=== PATIENT | male | born 1950 | race Caucasian/White ===

== ENCOUNTER → 2016-12-07 15:02 | Outpatient (CLI) | payer MEDICARE ==
[2014-02-07 16:19] VITALS: BMI 22.9
[~2016-12-07 15:02] MED LIST: ATIVAN1 MG PO; HYDROCODONE-APA1 TAB PO; MULTI-DAY VITAM1 TAB PO; NAPROSYN250 MG PO; RESTORIL15 MG PO; SONATA10 MG PO; VITAMIN B-1100 M1 PO
[2016-12-07 15:59] LABS: BASOPHILS 0.8 % (0-2); EOSINOPHILS 9.5 % (0-7); IMMATURE GRANULOCYTES 0.2 % (0-5); LYMPHOCYTES 32.4 % (15-50); MCH 33.7 pg (26.0-34.0); MCHC 34.1 g/dL (31.0-37.0); MCV 98.6 fL (80.0-100.0); MEAN PLATELET VOLUME 9.7 fL (7.4-10.4); MONOCYTES 12.1 % (2-11); RBC 4.16 10x6/uL (4.20-6.10); WBC 6.5 10x3/uL (4.8-10.8)
[2016-12-07 16:08] LABS: PLATELET COUNT 285 10x3/uL (130-400)
[2016-12-07 16:23] LABS: ALBUMIN 3.7 g/dL (3.4-5.0); ALKALINE PHOSPHATASE 89 U/L (46-116); ALT (SGPT) 18 U/L (10-68); AMYLASE - SERUM 25 U/L (25-115); BILIRUBIN - TOTAL 0.33 mg/dL (0.2-1.3); CALC OSMOLALITY 275 mosm/kg (275-300); CALCIUM 8.8 mg/dL (8.5-10.1); CARBON DIOXIDE 27.2 mmol/L (21.0-32.0); CHLORIDE - SERUM 102 mmol/L (98-107); GAMMA GT 57 U/L (5-85); GLUCOSE 85 mg/dL (74-106); LIPASE 112 U/L (73-393); POTASSIUM - SERUM 4.6 mmol/L (3.5-5.1); PROTEIN - SERUM 7.2 g/dL (6.4-8.2); SODIUM 139 mmol/L (136-145); UREA NITROGEN 10 mg/dL (7-18); eGFR NON AFRICAN AMERICAN 79 mL/min (90-120)
[2016-12-09 11:19] LABS: HEPATITIS C ANTIBODY <0.1 (0.0-0.9)
== END | disposition home or self-care (01) ==
LOC: D.RAD 15:02
PROVIDERS: Internal Medicine Gastroenterology
DX: R10.31 Right lower quadrant pain (principal); R11.2 Nausea with vomiting, unspecified; K62.5 Hemorrhage of anus and rectum; K21.9 Gastro-esophageal reflux disease without esophagitis; R13.10 Dysphagia, unspecified; K76.0 Fatty (change of) liver, not elsewhere classified

== ENCOUNTER → 2016-12-14 11:00 | Outpatient (CLI) | payer MEDICARE ==
[2014-02-07 16:19] VITALS: BMI 22.9
== END | disposition home or self-care (01) ==
LOC: D.RAD 11:00
DX: R10.9 Unspecified abdominal pain (principal)

== ENCOUNTER 2017-01-20 10:55 | Outpatient (CLI) | payer MEDICARE ==
[~2017-01-20] VITALS: Ht 175.3 cm; Wt 72.7 kg
--- NOTE | ~2017-01-20 | HEMODYNAMI ---
PATIENT:LAYO MENEZES MEDICAL RECORD: [id number] : 46 LOCATION:[facility] ADMISSION DATE: 01/20/17 Generatedon:01/20/201713:26 Patient name: LAYO MENEZES Patient #: [id number] SSN: : 1950 Date of study: 01/20/2017 Page: Of Hemodynamic Procedure Report Patient Data Patient Demographics Procedure consent was obtained First Name: LAYO Gender: Male Last Name: CLIF : 1950 [facility] Initial: MARY ELLEN Age: 66 year(s) Patient #: [id number] Race: Unknown Additional ID: [id number] Contact details [address]: [address] [place] [address] State: [place] City: [facility] Zip code: [address] Past Medical History Allergies Allergen Reaction Date Comments Reported Codeine 01/20/2017 Penicillins 01/20/2017 Admission Admission Data Admission Date: 01/20/2017 Admission Time: 10:55 Height (in.): 5.9 BSA: 0.32 (m2) Height (cm.): 14.99 BMI: 3393.15 (kg/m2) Weight (lbs.): 168 Weight (kg.): 76.2 Procedure Procedure Types Cath Procedure Diagnostic Procedure LHC LH w/Coronaries Miscellaneous Procedures Moderate Sedation up to 15 minutes Procedure Description Procedure Date Procedure Date: 01/20/2017 Procedure Start Time: 13:15 Procedure End Time: 13:26 Procedure Staff Name Function Larry Rios MD Performing Physician Christina Smith RT Monitor Alecia Gray RT Scrub Tod Garcia RN Nurse Procedure Data Cath Procedure Fluoroscopy Diagnostic fluoroscopy Total fluoroscopy Time: 2.2 time: 2.2 min min Diagnostic fluoroscopy Total fluoroscopy dose: 411 dose: 411 mGy mGy Contrast Material Contrast Material Type Amount (ml) Isovue 300 53 Entry Location Entry Primary Successful Side Size Upsize Upsize Entry Closure Bryant ccessful Closure Location (Fr) 1 (Fr) 2 (Fr) Remarks Device Remarks Radial Right 6 Fr Mechanical artery Short Compression Estimated blood loss: 5 ml Diagnostic catheters Device Type Used For End Catheter Placement DIAGNOSTIC [place] 110cm 5 Right Coronary Fr catheter ([id number]) Angiography DIAGNOSTIC [place] 110cm 5 Left Coronary Fr catheter ([id number]) Angiography Procedure Complications No complications Procedure Medications Medication Administration Route Dosage 0.9% NaCl I.V. 100 ml/hr Oxygen NC 2 l/min Heparin Flush Bag added to field 2 bags (1000units/500ml NS) Lidocaine 2% added to field 20 Radial Cocktail added to field 1 syringe (Verapomil 2mg/Nitro 400mcg/Heparin 1500units) Versed I.V. 2 mg Fentanyl I.V. 100 mcg Radial Cocktail I.A. 1 syringe (Verapomil 2mg/Nitro 400mcg/Heparin 1500units) Hemodynamics Rest BSA: 0.32 (m2) O2 Consumption: Estimated: 37.55 (ml/min) O2 Consumption indexed: Estimated:117.34 (ml/min/m) Heart Rate: 73 (bpm) Pressure Samples Time Site Value (mmHg) Purpose Heart Use Rate(bpm) 13:21 LV 98/4,6 EDP 92 13:21 AO 105/76(90) Pullback 89 13:21 LV 106/10,12 Pullback 89 Gradients Valve Time Site 1 Site 2 Mean SEP/DFP Peak To Heart Use (mmHg) (sec/min) Peak Rate (mmHg) (bpm) Aortic 13:21 LV AO 8 17 1 89 106/10,12 105/76(90) Calculations Valve P-P Mean Valve Index Valve Source Name Gradient Area Flow (cm2) Aortic 1 8 1 8 Snapshots Pre Cath Intra NCS Post Cath Vital Signs Time Heart Resp SPO2 etCO2 NIBP (mmHg) Rhythm Pain Sedation Rate (ipm) (%) (mmHg) Status Level (bpm) 12:58:08 78 19 97 38.5 148/91(119) NSR 0 (11) 10(A) , No pain 13:02:46 74 18 99 40.8 131/92(119) NSR 0 (11) 10(A) , No pain 13:07:25 79 18 100 31 131/86(99) NSR 0 (11) 10(A) , No pain 13:12:05 77 16 99 27.9 126/86(104) NSR 0 (11) 10(A) , No pain 13:16:44 77 14 99 43.1 118/87(102) NSR 0 (11) 10(A) , No pain 13:21:21 91 16 96 14.3 109/76(100) NSR 0 (11) 10(A) , No pain 13:25:55 82 13 32.5 111/79(96) NSR 0 (11) 10(A) , No pain Medications Time Medication Route Dose Verified Delivered Reason Notes Effectiveness by by 12:57:33 0.9% NaCl I.V. 100 Tod Tod Per ml/hr Radha Garcia physician RN RN 12:57:45 Oxygen NC 2 l/min Tod Tod Per Radha Garcia physician RN RN 12:57:58 Heparin Flush added 2 bags Tod Tod used for Bag to Radha Garcia procedure (1000units/500ml field RICH VILLANUEVA NS) 12:58:13 Lidocaine 2% added 20ml Tod Tod for local to vial Radha Garcia anesthetic field VILLANUEVA RN 13:03:31 Radial Cocktail added 1 Tod Tod for (Verapomil to syringe Arelyigan Arelyigan vasodilation 2mg/Nitro field VILLANUEVA RN 400mcg/Heparin 1500units) 13:13:00 Versed I.V. 2 mg Tod Tod for sedation Radha Garcia RN RN 13:13:13 Fentanyl I.V. 100 mcg Tod Tod for sedation Radha Garcia RN RN 13:16:44 Radial Cocktail I.A. 1 Tod Larry for (Verapomil syringe Radha [place] vasodilation 2mg/Nitro RICH ABDI 400mcg/Heparin 1500units) Procedure Log Time Note 12:42:36 Patient Height : 5.9 inches 12:42:40 Patient Weight : 168 lbs 12:43:07 Diagnostic Cath status Elective 12:43:09 Time tracking: Regular hours 12:43:12 Christina Counts RT(R) sent for patient. Start room use. 12:43:21 Plan of Care:Hemodynamics will remain stable., Cardiac rhythm will remain stable., Comfort level will be maintained., Respiratory function will remain adequate., Patient/ family verbilizes understanding of procedure., Procedure tolerated without complication., Recovers from procedure without complications.. 12:43:44 H&P Date Dictated: 12/31/2016 Within 30 days and on chart., H&P Addendum completed by physician on day of procedure. (MUST COMPLETE FOR ALL OUTPATIENTS). 12:49:31 Patient received from Pre/Post Procedure Room to CCL 1 Alert and oriented. Tansferred to table in Supine position. 12:49:32 Warm blankets applied, and darshan hugger turned on for patient comfort. 12:49:33 Correct patient and procedure confirmed by team. 12:49:35 Signed procedure consent form obtained from patient. 12:49:36 ECG and BP/O2 sat monitors applied to patient. 12:57:16 Vital chart was started 12:57:33 0.9% NaCl 100 ml/hr I.V. was administered by Tod Garcia RN; Per physician; 12:57:45 Oxygen 2 l/min NC was administered by Tod Garcia RN; Per physician; 12:57:58 Heparin Flush Bag (1000units/500ml NS) 2 bags added to field was administered by Tod Garcia RN; used for procedure; 12:58:13 Lidocaine 2% 20ml vial added to field was administered by Tod Garcia RN; for local anesthetic; 13:01:16 Baseline sample Acquired. 13:01:20 Rhythm: unchanged. 13:01:21 Full Disclosure recording started 13:01:22 Pre-procedure instructions explained to patient. 13:01:23 Pre-op teaching completed and patient verbalized understanding. 13:01:25 Family unavailable. 13:01:32 Patient NPO since Midnight. 13:01:40 Patient allergic to Codeine 13:01:46 Patient allergic to Penicillins 13:01:48 Is the patient allergic to Iodine/contrast media? No. 13:01:50 Is patient on blood thinner?No 13:01:52 Patient diabetic? No. 13:01:56 Previous problem with sedation/anesthesia? No ? 13:01:57 Snore? No 13:01:58 Sleep apnea? No 13:01:59 Deviated septum? No 13:02:00 Opens mouth fully? Yes 13:02:01 Sticks out tongue? Yes 13:02:03 Airway obstruction? No ? 13:02:05 Dentures? Yes IN 13:02:08 Pre procedure: right dorsailis pedis pulse 2+ Normal; easily identifiable; not easily obliterated 13:02:11 Modified Darrell's test Ulnar < 7 seconds 13:02:12 Patient pain scale 0/10 ?. 13:02:17 IV patent on arrival in left hand with 0.9% NaCl at O. 13:02:20 Lab results completed and on chart. 13:02:23 Right Radial & Right Groin area was prepped with chlora-prep and draped in sterile fashion 13:02:24 Alarms reviewed by R. N. 13:02:24 Sharps counted by scrub and verified by R.N. 13:02:27 Use device set Radial Dx 13:02:28 ACIST Syringe (31827) opened to sterile field. 13:02:28 Medline Cath Pack ([id number]) opened to sterile field. 13:02:29 Bag Decanter (2002S) opened to sterile field. 13:02:29 SHEATH 6FR Slender ([id number]) opened to sterile field. 13:02:30 DIAGNOSTIC WIRE .035 260cm J wire (850524) opened to sterile field. 13:02:31 ACIST Hand Control (04955) opened to sterile field. 13:02:31 ACIST Manifold (96222) opened to sterile field. 13:02:32 Tegaderm 4 x 4 (1626W) opened to sterile field. 13:02:33 MBrace Wrist Support ([id number]) opened to sterile field. 13:03:31 Radial Cocktail (Verapomil 2mg/Nitro 400mcg/Heparin 1500units) 1 syringe added to field was administered by Tod Garcia RN; for vasodilation; 13:04:06 Physician paged 13:05:53 Zero performed for pressure channel P1 13:11:05 Final Timeout: patient, procedure, and site verified with staff and physician. All members of the team are in agreement. 13:11:07 Right Radial site verified by team. 13:11:17 Physical assessment completed. ASA score P 2 - A patient with mild systemic disease as per Larry Rios MD. 13:11:24 Sedation plan: IV Moderate Sedation Medication:Versed, Fentanyl 13:13:00 Versed 2 mg I.V. was administered by Tod Garcia RN; for sedation; 13:13:13 Fentanyl 100 mcg I.V. was administered by Tod Garcia RN; for sedation; 13:15:02 Procedure started. 13:15:09 Local anesthetic to right radial artery with Lidocaine 2% by Larry Rios MD.INITIAL ACCESS ONLY 13:15:43 A 6 Fr Short sheath was inserted into the Right Radial artery 13:16:44 Radial Cocktail (Verapomil 2mg/Nitro 400mcg/Heparin 1500units) 1 syringe I.A. was administered by Larry Rios MD; for vasodilation; 13:17:15 A DIAGNOSTIC [place] 110cm 5 Fr catheter (385075) was advanced over the wire and used for Right Coronary Angiography. 13:19:39 A DIAGNOSTIC [place] 110cm 5 Fr catheter (793079) was advanced over the wire and used for Left Coronary Angiography. 13:21:34 LV gram done using DUARTE 13::44 Injector settings: Ml/sec: 5, Volume: 15, 13:21:47 Catheter removed. 13:22:05 Sheath removed intact; hemostasis achieved with Mechanical Compression to the Right Radial artery. 13:22:08 Procedure ended.(Physican Out) 13:22:24 Fluoroscopy time 02.20 minutes. 13:22:27 Fluoroscopy dose: 411 mGy 13:22:27 Flurop Dose total: 411 13:22:32 Contrast amount:Isovue 300 53ml. 13:22:34 Sharps counted by scrub and verified by R.N. 13:22:36 Insertion/operative site no bleeding no hematoma. 13:22:53 TR band inflated with 12cc of air. 13:22:56 TR BAND Standard ([id number]) opened to sterile field. 13:23:01 Post Procedure Pulses reassessed and unchanged 13:23:03 Post-procedure physical assessment completed. ASA score P 2 - A patient with mild systemic disease as per Larry Rios MD. 13:23:05 Post procedure rhythm: unchanged. 13:23:08 Estimated blood loss: 5 ml 13:23:10 Post procedure instruction explained to patient.Patient verbalizes understanding. 13:23:10 Patient needs reinforcement of post procedure teaching. 13:25:04 See physician's report for complete and final results. 13:25:23 Procedure and supply charges have been captured, reviewed, submitted and are correct. 13:25:28 Procedure Complication : No complications 13:25:56 Vital chart was stopped 13:26:00 Report given to Pre/Post Procedure Room. 13:26:04 Patient transfered to Pre/Post Procedure Room with Stretcher. 13:26:12 Procedure ended. 13:26:12 Full Disclosure recording stopped 13:26:16 End room use (Document Last) Device Usage Item Name Manufacture Quantity Catalog Hospital Part Current Minima l Lot# / Number Charge Number Stock Stock Serial# Code ACIST Acist 1 [id number] [id number] 477634 496298 20 Syringe Medical (15085) Systems Inc Medline Cath Cardinal 1 [id number] 837081 58746 225574 5 Pack Health ([id number]) Bag Decanter Microtek 1 2001S 353921 67495 527350 5 (2001S) Medical Inc. SHEATH 6FR Terumo 1 [id number] 896974 231481 372864 40 Slender ([id number]) DIAGNOSTIC [facility] Elias 1 125761 413843 140375 672459 30 WIRE .035 260cm J wire (021571) ACIST Hand Acist 1 48516 667854 161635 997915 5 Control Medical (44751) Systems Inc ACIST Acist 1 79147 399498 798326 521795 5 Manifold Medical (09662) Systems Inc Tegaderm 4 x 3M 1 1626W 086281 496653 381399 5 4 (1626W) MBrace Wrist Advanced 1 140-0250-00 654558 37622 953649 5 Support Vascular ([id number]) Dynamics DIAGNOSTIC Terumo 1 40-5013 791133 586406 315040 5 [place] 110cm 5 Fr catheter (375577) TR BAND Terumo 1 [id number] 805701 549159 349644 40 Standard (JHI53LAY) Signature Audit [place] Stage Time Signature Unsigned Intra-Procedure 01/20/2017 Christina 1:26:33 PM Counts RT(R) Signatures Monitor : Christina Signature : Counts RT Date : Time : [place] [id number]
[~2017-01-20 10:55] MED LIST changes: -SONATA10 MG PO
[2017-01-20] MEDS ORDERED: HYDROCODONE-APA1 TAB PO (11:12)
[2017-01-20] MEDS ORDERED: SONATA10 MG PO (11:14)
[2017-01-20 11:22] VITALS: BP 139/100; Ht 175.3 cm; Wt 72.7 kg
[2017-01-20 11:36] LABS: BASOPHILS 0.4 % (0-2); EOSINOPHILS 5.9 % (0-7); HEMATOCRIT 45.5 % (42.0-54.0); HEMOGLOBIN 15.5 g/dL (13.5-17.5); IMMATURE GRANULOCYTES 0.5 % (0-5); LYMPHOCYTES 31.5 % (15-50); MCH 33.5 pg (26.0-34.0); MCHC 34.1 g/dL (31.0-37.0); MCV 98.3 fL (80.0-100.0); MEAN PLATELET VOLUME 9.9 fL (7.4-10.4); MONOCYTES 8.7 % (2-11); PLATELET COUNT 329 10x3/uL (130-400); RBC 4.63 10x6/uL (4.20-6.10); RDW 12.6 % (11.5-14.5); WBC 9.9 10x3/uL (4.8-10.8)
[2017-01-20 11:40] LABS: CALC OSMOLALITY 274 mosm/kg (275-300); CALCIUM 9.2 mg/dL (8.5-10.1); CARBON DIOXIDE 27.5 mmol/L (21.0-32.0); CHLORIDE - SERUM 99 mmol/L (98-107); CREATININE - SERUM 0.9 mg/dL (0.6-1.3); GLUCOSE 113 mg/dL (74-106); POTASSIUM - SERUM 4.1 mmol/L (3.5-5.1); SODIUM 138 mmol/L (136-145); UREA NITROGEN 8 mg/dL (7-18); eGFR NON AFRICAN AMERICAN 89 mL/min (90-120)
--- NOTE | 2017-01-20 13:50 | NUR ---
2L NC, NO RESP DISTRESS. RIGHT WRIST TR BAND CDI, NO BLEEDING OR HEMATOMA NOTED. NO C/O PAIN OR NAUSEA. VSS. FAMILY AT BEDSIDE, CALL LIGHT WITHIN REACH.
--- NOTE | 2017-01-20 14:20 | NUR ---
RIGHT WRIST TR BAND CDI, NO BLEEDING OR HEMATOMA NOTED. 2L NC, NO RESP DISTRESS. DRINK AND SANDWICH TRAY GIVEN, NO C/O NAUSEA. VSS. WILL CONTINUE TO MONITOR.
--- NOTE | 2017-01-20 14:40 | NUR ---
4CC OF AIR REMOVED FROM TR BAND, NO BLEEDING NOTED.
--- NOTE | 2017-01-20 14:55 | NUR ---
4CC OF AIR REMOVED FROM TR BAND, NO BLEEDING NOTED.
--- NOTE | 2017-01-20 15:20 | NUR ---
LEFT WRIST PIV D/C'D WITH CATHETER INTACT, BAND AID TO SITE. UP TO BEDSIDE TO GET DRESSED.
--- NOTE | 2017-01-20 15:25 | NUR ---
REMAINING AIR REMOVED FROM TR BAND AND DRESSING PLACED TO SITE. DISCHARGE INSTRUCTIONS GIVEN, VERBALIZED UNDERSTANDING.
--- NOTE | 2017-01-20 15:35 | NUR ---
TAKEN OUT VIA WHEELCHAIR BY CATH COMMUNICATIONS TOWER TECHNICIAN. LEFT FACILITY WITH FAMILY AND ALL PERSONAL BELONGINGS.
--- NOTE | 2017-01-24 08:17 | OP ---
PATIENT NAME: LAYO MENEZES MEDICAL RECORD: [id number] :46 LOCATION:D[facility] ADMISSION DATE: SURGEON: CARMELITA DURAND MD DATE OF OPERATION: 01/20/2017 PROCEDURE: Left heart cath, selective coronary angiography, right radial approach. CATHETERS: A 5-Latvian radial catheter, Monroe catheter. The procedure was tolerated. The patient returned to griffith. Sheath was removed. TR band was placed. FINDINGS: Left ventriculography 30-degree DUARTE view: Normal wall motion, normal systolic function. CORONARY ANATOMY. LEFT MAIN: Left main is free of disease. LAD: Free of disease in the diagonal system. CIRCUMFLEX: Free of disease in the marginal system. RIGHT CORONARY ARTERY: Free of disease. IMPRESSION: Normal coronary anatomy. Normal left ventricular function. TRANSINT:[id number] Voice Confirmation ID: [id number] DOCUMENT ID: [id number] CARMELITA DURAND MD at 0817 CC: [id number] DICTATION DATE: 01/20/17 1417 BAKERY WORKER: 01/20/17 1501 DEP CLI 01/20/17 [place] [address] [place] [address]
== END 2017-01-20 15:35 | disposition home or self-care (01) ==
LOC: D.CATH 10:55
PROVIDERS: Internal Medicine Interventional Cardiology
DX: I20.9 Angina pectoris, unspecified (principal); I49.9 Cardiac arrhythmia, unspecified; I67.9 Cerebrovascular disease, unspecified; R07.9 Chest pain, unspecified; F17.200 Nicotine dependence, unspecified, uncomplicated; R94.30 Abnormal result of cardiovascular function study, unspecified; Z01.812 Encounter for preprocedural laboratory examination

== ENCOUNTER → 2018-06-09 09:58 | Outpatient (CLI) | payer MEDICARE ==
[~2018-06-09 09:58] MED LIST changes: +CARAFATE1 G PO; +CHRONULAC30 ML PO; +CYCLOBENZAPRINE10 MG PO; +LYRICA100 MG PO; +MACROBID100 MG PO; +SONATA10 MG PO
== END | disposition home or self-care (01) ==
LOC: D.LAB 09:58
DX: R06.09 Other forms of dyspnea (principal)

== ENCOUNTER → 2018-08-09 06:45 | Outpatient (CLI) | payer MEDICARE ==
--- NOTE | 2018-08-14 09:50 | ST ---
PATIENT:LAYO MENEZES MEDICAL RECORD: [id number] SEX: M LOCATION:[facility] ORDER #: ADMISSION DATE: 08/09/18 AGE OF PATIENT: 67 REFERRING PHYSICIAN: INTERPRETING PHYSICIAN: RODOLFO DICKERSON MD DATE OF SERVICE: 08/09/2018 PROCEDURE: Nuclear stress test. INDICATION: Angina, abnormal ECG, dysrhythmia -- PVCs. He was exercised on standard Lexiscan protocol with 33 mCi of sestamibi injected at peak stress, 11 mCi was used previously for rest images. FINDINGS: Gated SPECT reveals a preserved ejection fraction of 50% with decreased thickening and brightening throughout the inferior segments. SPECT imaging Cardiolite was used as a myocardial perfusion agent. There is a fixed perfusion defect inferiorly and septally. This includes basal, mid, apical, inferior segments, the apex itself as well as basal septal, mid septal and apical septal. There is no evidence of reversibility in the remaining segments with homogeneous uptake at rest and stress. OVERALL IMPRESSION: This is an abnormal nuclear stress test showing previous inferoseptal myocardial infarction, no ongoing ischemic burden, ejection fraction preserved at 50%. Continue medical management of the coronary artery disease and cardiac risk factors. TRANSINT:[id number] Voice Confirmation ID: [id number] DOCUMENT ID: [id number] RODOLFO DICKERSON MD at 0950 CC: ARACELY ARELLANO DO [id number] DICTATION DATE: 08/09/18 1635 MEMS DEVICE SCIENTIST: 08/10/18 0847 [facility] CLI 08/09/[address] [address]
== END | disposition home or self-care (01) ==
LOC: D.HCCARDIO 06:45
PROVIDERS: ATTEND Internal Medicine Interventional Cardiology
DX: I20.9 Angina pectoris, unspecified (principal)

== ENCOUNTER 2019-10-03 11:18 | Emergency (ER) | payer MEDICARE ==
[~2019-10-03] VITALS: Ht 175.3 cm; Wt 86.8 kg
[2019-10-03 11:26] VITALS: Ht 175.3 cm; Wt 86.8 kg
[2019-10-03 12:00] LABS: BASOPHILS 0.6 % (0-2); EOSINOPHILS 4.6 % (0-7); HEMATOCRIT 44.7 % (42.0-54.0); HEMOGLOBIN 14.5 g/dL (13.5-17.5); IMMATURE GRANULOCYTES 0.2 % (0-5); LYMPHOCYTES 37.9 % (15-50); MCH 33.3 pg (26.0-34.0); MCHC 32.4 g/dL (31.0-37.0); MCV 102.5 fL (80.0-100.0); MEAN PLATELET VOLUME 9.9 fL (7.4-10.4); MONOCYTES 11.4 % (2-11); NEUTROPHILS 45.3 % (40-80); PLATELET COUNT 246 10x3/uL (130-400); RBC 4.36 10x6/uL (4.20-6.10); RDW 12.5 % (11.5-14.5); WBC 6.3 10x3/uL (4.8-10.8)
[2019-10-03 12:08] LABS: CALC OSMOLALITY 278 mosm/kg (275-300); CALCIUM 8.8 mg/dL (8.5-10.1); CARBON DIOXIDE 30.8 mmol/L (21.0-32.0); CHLORIDE - SERUM 104 mmol/L (98-107); CREATININE - SERUM 1.1 mg/dL (0.6-1.3); GLUCOSE 93 mg/dL (74-106); POTASSIUM - SERUM 4.3 mmol/L (3.5-5.1); SODIUM 139 mmol/L (136-145); UREA NITROGEN 14 mg/dL (7-18); eGFR NON AFRICAN AMERICAN 70 mL/min (90-120)
[2019-10-03 12:16] LABS: ALBUMIN 3.5 g/dL (3.4-5.0); ALKALINE PHOSPHATASE 71 U/L (30-120); ALT (SGPT) 25 U/L (10-68); AMYLASE - SERUM 22 U/L (25-115); BILIRUBIN - TOTAL 0.62 mg/dL (0.2-1.3); LIPASE 71 U/L (73-393); PROTEIN - SERUM 6.5 g/dL (6.4-8.2); TROPONIN-I < 0.017 ng/mL (0.000-0.060)
[2019-10-03 12:31] LABS: BILIRUBIN NEGATIVE (NEGATIVE); GLUCOSE NEGATIVE (NEGATIVE); KETONE NEGATIVE (NEGATIVE); NITRITE NEGATIVE (NEGATIVE)
[2019-10-03] MEDS ORDERED: LEVSIN/ANASP0.125 MG PO (13:49)
[2019-10-03 13:59] VITALS: BP 109/71
== END 2019-10-03 14:00 | disposition home or self-care (01) ==
LOC: D.ER 11:18
PROVIDERS: Family Medicine
DX: R14.0 Abdominal distension (gaseous) (principal); R10.9 Unspecified abdominal pain; I25.2 Old myocardial infarction

== ENCOUNTER 2020-06-18 14:39 | Emergency (ER) | payer MEDICARE ==
[~2020-06-18] VITALS: Ht 175.3 cm; Wt 81.8 kg
[~2020-06-18 14:39] MED LIST changes: +LEVSIN/ANASP0.125 MG PO
[2020-06-18 14:48] VITALS: Ht 175.3 cm; Wt 81.8 kg
[2020-06-18 15:16] LABS: BASOPHILS 0.6 % (0-2); EOSINOPHILS 2.9 % (0-7); HEMATOCRIT 47.6 % (42.0-54.0); HEMOGLOBIN 16.1 g/dL (13.5-17.5); IMMATURE GRANULOCYTES 0.3 % (0-5); LYMPHOCYTE ABS# 2.48 10x3/uL (1.32-3.57); LYMPHOCYTES 28.7 % (15-50); MCHC 33.8 g/dL (31.0-37.0); MCV 100.4 fL (80.0-100.0); MEAN PLATELET VOLUME 10.4 fL (7.4-10.4); MONOCYTES 8.4 % (2-11); NEUTROPHILS 59.1 % (40-80); PLATELET COUNT 269 10x3/uL (130-400); RBC 4.74 10x6/uL (4.20-6.10); RDW 12.4 % (11.5-14.5); WBC 8.6 10x3/uL (4.8-10.8)
[2020-06-18 15:28] LABS: APTT 30.2 SECONDS (22.8-39.4); INR 1.04 (0.85-1.17); PROTIME 12.6 SECONDS (11.6-15.0)
[2020-06-18 15:36] LABS: CALC OSMOLALITY 275 mosm/kg (275-300); CALCIUM 8.6 mg/dL (8.5-10.1); CARBON DIOXIDE 26.7 mmol/L (21.0-32.0); CHLORIDE - SERUM 102 mmol/L (98-107); GLUCOSE 115 mg/dL (74-106); POTASSIUM - SERUM 4.1 mmol/L (3.5-5.1); SODIUM 137 mmol/L (136-145); UREA NITROGEN 14 mg/dL (7-18); eGFR NON AFRICAN AMERICAN 78 mL/min (90-120)
[2020-06-18 15:39] LABS: ALBUMIN 3.5 g/dL (3.4-5.0); ALKALINE PHOSPHATASE 104 U/L (30-120); ALT (SGPT) 20 U/L (10-68); BILIRUBIN - TOTAL 0.51 mg/dL (0.2-1.3); PROTEIN - SERUM 6.8 g/dL (6.4-8.2)
[2020-06-18 17:06] VITALS: BP 125/96
== END 2020-06-18 17:17 | disposition home or self-care (01) ==
LOC: D.ER 14:39
PROVIDERS: Emergency Medicine
DX: S16.1XXA Strain of muscle, fascia and tendon at neck level, initial encounter (principal); S09.90XA Unspecified injury of head, initial encounter; S70.11XA Contusion of right thigh, initial encounter; S20.219A Contusion of unspecified front wall of thorax, initial encounter; V09.09XA Pedestrian injured in nontraffic accident involving other motor vehicles, initial encounter; Y93.9 Activity, unspecified; Y92.9 Unspecified place or not applicable

== ENCOUNTER → 2020-07-02 15:03 | Outpatient (CLI) | payer MEDICARE ==
[2020-06-18 14:48] VITALS: BMI 26.6
[~2020-07-02 15:03] MED LIST changes: +ALBUTEROL SULF8.5 GM; +BETAMET; +CLOTRIMAZOLE; +DEXILANT60 MG PO; +DONEPEZIL HCL5 MG PO; +FLOMAX0.4 MG PO; +MELATONIN 3 MG1 TAB PO; +MUPIROCIN22 GM TOPICAL; +PEPCID40 MG PO; +ROPINIROLE HCL0.5 MG PO; +VALIUM 2 MG TAB2 MG PO; +ZOLOFT50 MG PO
[2020-07-03 11:18] LABS: SARS-CoV-2 ANTIGEN NEGATIVE- SARS-COV-2 (NEGATIVE)
== END | disposition home or self-care (01) ==
LOC: D.LAB 15:03
PROVIDERS: ATTEND Nurse Practitioner Family
DX: Z11.52 Encounter for screening for COVID-19 (principal)

== ENCOUNTER → 2020-07-03 09:15 | Outpatient (CLI) | payer MEDICARE ==
[2020-06-18 14:48] VITALS: BMI 26.6
== END | disposition home or self-care (01) ==
LOC: D.RT 09:15
PROVIDERS: ATTEND Nurse Practitioner Family
DX: J44.9 Chronic obstructive pulmonary disease, unspecified (principal); Z11.52 Encounter for screening for COVID-19

== ENCOUNTER 2020-07-04 13:25 | Inpatient (IN) | payer MEDICARE ==
[~2020-07-04] VITALS: Ht 175.3 cm; Wt 88.0 kg
[~2020-07-04 13:25] MED LIST changes: -ALBUTEROL SULF8.5 GM; -BETAMET; -CLOTRIMAZOLE; -DEXILANT60 MG PO; -DONEPEZIL HCL5 MG PO; -FLOMAX0.4 MG PO; -MELATONIN 3 MG1 TAB PO; -MUPIROCIN22 GM TOPICAL; -PEPCID40 MG PO; -ROPINIROLE HCL0.5 MG PO; -VALIUM 2 MG TAB2 MG PO; -ZOLOFT50 MG PO
[2020-07-04 18:14] LABS: BASOPHILS 0.7 % (0-2); EOSINOPHILS 2.6 % (0-7); HEMATOCRIT 44.5 % (42.0-54.0); HEMOGLOBIN 14.9 g/dL (13.5-17.5); LYMPHOCYTES 21.2 % (15-50); MCH 33.5 pg (26.0-34.0); MCHC 33.5 g/dL (31.0-37.0); MCV 100.1 fL (80.0-100.0); MEAN PLATELET VOLUME 8.3 fL (7.4-10.4); MONOCYTES 9.4 % (2-11); NEUTROPHILS 66.1 % (40-80); PLATELET COUNT 244 10x3/uL (130-400); RBC 4.45 10x6/uL (4.20-6.10); RDW 12.8 % (11.5-14.5); WBC 10.7 10x3/uL (4.8-10.8)
[2020-07-04 18:31] VITALS: BP 125/80
--- NOTE | 2020-07-04 18:34 | NUR ---
PT TO ROOM FROM ER VIA WHEELCHAIR. CHANGED TO GOWN. PULSE OX 95% ON ROOM AIR. POA WAS WITH HIM IN ER BUT WENT HOME NOW. WILL GET ADMITTED.
[2020-07-04 18:37] LABS: ALBUMIN 3.3 g/dL (3.4-5.0); ALKALINE PHOSPHATASE 80 U/L (30-120); ALT (SGPT) 17 U/L (10-68); BILIRUBIN - TOTAL 0.31 mg/dL (0.2-1.3); CALC OSMOLALITY 279 mosm/kg (275-300); CALCIUM 8.3 mg/dL (8.5-10.1); CARBON DIOXIDE 31.7 mmol/L (21.0-32.0); CHLORIDE - SERUM 104 mmol/L (98-107); CKMB 0.3 U/L (0.0-3.6); CREATINE KINASE 34 UL (21-232); CREATININE - SERUM 0.9 mg/dL (0.6-1.3); GLUCOSE 91 mg/dL (74-106); POTASSIUM - SERUM 4.1 mmol/L (3.5-5.1); PROTEIN - SERUM 6.3 g/dL (6.4-8.2); SODIUM 140 mmol/L (136-145); UREA NITROGEN 14 mg/dL (7-18); eGFR NON AFRICAN AMERICAN 88 mL/min (90-120)
[2020-07-04 18:38] LABS: TROPONIN-I < 0.017 ng/mL (0.000-0.060)
[2020-07-04 19:12] LABS: MAGNESIUM - SERUM 2.1 mg/dL (1.8-2.4)
--- NOTE | 2020-07-04 19:30 | NUR ---
RECEIVED REPORT, WILL ASSUME CARE OF PT, HISTORY COMPLETE, MEDS REVIEWED, PLACED ON [id number]-[id number]-40, IV-LAC-NS @75,BED IS LOW, SRX2, CALL LIGHT IN REACH, WILL CONTINUE PLAN OF CARE
[2020-07-04 20:45] VITALS: BP 118/59
[2020-07-04] MEDS ORDERED: ALBUTEROL SULF8.5 GM (21:29)
[2020-07-04] MEDS ORDERED: DONEPEZIL HCL5 MG PO (21:30)
[2020-07-04] MEDS ORDERED: DEXILANT60 MG PO (21:30)
[2020-07-04] MEDS ORDERED: FLOMAX0.4 MG PO (21:31)
[2020-07-04] MEDS ORDERED: PEPCID40 MG PO (21:31)
[2020-07-04] MEDS ORDERED: MUPIROCIN22 GM TOPICAL (21:32)
[2020-07-04] MEDS ORDERED: ZOLOFT50 MG PO (21:32)
[2020-07-04] MEDS ORDERED: VALIUM 2 MG TAB2 MG PO (21:33)
[2020-07-04] MEDS ORDERED: BETAMET (21:33)
[2020-07-04] MEDS ORDERED: CLOTRIMAZOLE (21:33)
[2020-07-04] MEDS ORDERED: ROPINIROLE HCL0.5 MG PO (21:34)
[2020-07-04] MEDS ORDERED: MELATONIN 3 MG1 TAB PO (21:35)
--- NOTE | 2020-07-04 21:35 | NUR ---
PT UNSURE OF WHAT HOME MEDICATIONS HE TAKES, HOME MED REC COMPLETED FROM PCP CURRENT MED LIST AND WHAT MEDICATION HAS BEEN FILLED PER PHARMACY.
[2020-07-04 22:54] LABS: BILIRUBIN NEGATIVE (NEGATIVE); KETONE NEGATIVE (NEGATIVE); NITRITE NEGATIVE (NEGATIVE); UROBILINOGEN NORMAL mg/dL (< 2)
[2020-07-04 22:55] LABS: BACTERIA NONE SEEN HPF (NONE SEEN)
[2020-07-05 00:10] VITALS: BP 115/77
[2020-07-05 00:44] LABS: UDS - AMPHET NEGATIVE QUAL (NEGATIVE); UDS - BARB NEGATIVE QUAL (NEGATIVE); UDS - BENZO POSITIVE QUAL (NEGATIVE); UDS - COCAINE NEGATIVE QUAL (NEGATIVE); UDS - OPIATE POSITIVE QUAL (NEGATIVE); UDS - PCP NEGATIVE QUAL (NEGATIVE); UDS - THC NEGATIVE QUAL (NEGATIVE)
[2020-07-05 01:17] LABS: CKMB 0.5 U/L (0.0-3.6); CREATINE KINASE 32 UL (21-232); TROPONIN-I < 0.017 ng/mL (0.000-0.060)
[2020-07-05 04:33] VITALS: BP 115/77; BMI 31.0
[2020-07-05 05:13] VITALS: BP 109/71
[2020-07-05 06:45] LABS: BASOPHILS 0.3 % (0-2); EOSINOPHILS 0 % (0-7); HEMATOCRIT 45.6 % (42.0-54.0); HEMOGLOBIN 15.1 g/dL (13.5-17.5); LYMPHOCYTES 15.7 % (15-50); MCH 33.7 pg (26.0-34.0); MCHC 33.1 g/dL (31.0-37.0); MCV 101.7 fL (80.0-100.0); MEAN PLATELET VOLUME 9.4 fL (7.4-10.4); MONOCYTES 2.9 % (2-11); NEUTROPHILS 81.1 % (40-80); PLATELET COUNT 276 10x3/uL (130-400); RBC 4.49 10x6/uL (4.20-6.10); RDW 12.6 % (11.5-14.5); WBC 8.8 10x3/uL (4.8-10.8)
[2020-07-05 07:11] LABS: CKMB 0.4 U/L (0.0-3.6); CREATINE KINASE 33 UL (21-232)
[2020-07-05 07:12] LABS: ALBUMIN 3.2 g/dL (3.4-5.0); ALKALINE PHOSPHATASE 81 U/L (30-120); ALT (SGPT) 16 U/L (10-68); APTT 28.9 SECONDS (22.8-39.4); BILIRUBIN - TOTAL 0.42 mg/dL (0.2-1.3); CALC OSMOLALITY 276 mosm/kg (275-300); CALCIUM 8.6 mg/dL (8.5-10.1); CARBON DIOXIDE 25.5 mmol/L (21.0-32.0); CHLORIDE - SERUM 104 mmol/L (98-107); CREATININE - SERUM 0.7 mg/dL (0.6-1.3); GLUCOSE 127 mg/dL (74-106); INR 1.03 (0.85-1.17); MAGNESIUM - SERUM 2.4 mg/dL (1.8-2.4); POTASSIUM - SERUM 4.4 mmol/L (3.5-5.1); PROTEIN - SERUM 6.4 g/dL (6.4-8.2); PROTIME 12.5 SECONDS (11.6-15.0); SODIUM 137 mmol/L (136-145); UREA NITROGEN 15 mg/dL (7-18); eGFR NON AFRICAN AMERICAN > 90 mL/min (90-120)
[2020-07-05 07:18] LABS: TROPONIN-I < 0.017 ng/mL (0.000-0.060)
--- NOTE | 2020-07-05 08:00 | NUR ---
AAOX4 UPON ENTERING. ADMINISTERED MEDICATION, NO DIFFICULTIES. SITTING UPRIGHT IN BED. ASSESSMENT PERFORMED AT THIS TIME. DENIES ANY NEEDS AT THIS TIME. BED IN LOWEST POSITION, BED RAILS X2, CALL LIGHT WITHIN REACH. WILL CONTINUE POC.
[2020-07-05 08:25] VITALS: BP 121/73
--- NOTE | 2020-07-05 09:28 | NUR ---
ADMINISTERED IV STERIOD. TOLERATED WELL. VISITOR AT BEDSIDE. DENIES ANY NEEDS. WILL CONTINUE POC.
--- NOTE | 2020-07-05 09:35 | NUR ---
I have reviewed this patient and I concur with the Shift Assessment completed by the Licensed Practical Nurse today this shift.
[2020-07-05 11:04] VITALS: Ht 175.3 cm; Wt 88.0 kg
--- NOTE | 2020-07-05 14:30 | NUR ---
ASSISTED PT INTO SHOWER, SHOWERED SELF WITH NO DIFFICULTY. ENTIRE LINEN CHANGE. REPLACED TELEMETRY STICKERS, RECONNECTED IV. SITUATED COMFORTABLY IN BED. DENIES ANY NEEDS AT THIS TIME. WILL CONTINUE POC.
[2020-07-05 15:56] VITALS: BP 92/69
--- NOTE | 2020-07-05 16:49 | NUR ---
IV STEROID, TOLERATED WELL. SITTING UP RIGHT IN BED. EATING DINNER. VISITOR AT BEDSIDE. DENIES ANY NEEDS. WILL CONTINUE POC.
--- NOTE | 2020-07-05 20:00 | NUR ---
INITIAL ROUNDS AND ASSESSMENT COMPLETED. PT RESTING. CALL LIGHT IN REACH.
[2020-07-05 20:54] VITALS: BP 119/70
[2020-07-06 01:03] VITALS: BP 110/68
[2020-07-06 06:03] VITALS: BP 112/61
[2020-07-06 06:45] LABS: BASOPHILS 0.5 % (0-2); EOSINOPHILS 0.1 % (0-7); HEMATOCRIT 43.4 % (42.0-54.0); HEMOGLOBIN 14.5 g/dL (13.5-17.5); LYMPHOCYTES 14.4 % (15-50); MCH 33.5 pg (26.0-34.0); MCHC 33.4 g/dL (31.0-37.0); MCV 100.2 fL (80.0-100.0); MEAN PLATELET VOLUME 8.7 fL (7.4-10.4); PLATELET COUNT 280 10x3/uL (130-400); RBC 4.33 10x6/uL (4.20-6.10); RDW 12.5 % (11.5-14.5)
[2020-07-06 07:04] LABS: WBC 13.7 10x3/uL (4.8-10.8)
[2020-07-06 07:10] LABS: ALKALINE PHOSPHATASE 69 U/L (30-120); ALT (SGPT) 15 U/L (10-68); BILIRUBIN - TOTAL 0.45 mg/dL (0.2-1.3); CALC OSMOLALITY 276 mosm/kg (275-300); CALCIUM 8.2 mg/dL (8.5-10.1); CARBON DIOXIDE 25.5 mmol/L (21.0-32.0); CHLORIDE - SERUM 106 mmol/L (98-107); CREATININE - SERUM 0.8 mg/dL (0.6-1.3); GLUCOSE 113 mg/dL (74-106); MAGNESIUM - SERUM 2.6 mg/dL (1.8-2.4); POTASSIUM - SERUM 3.9 mmol/L (3.5-5.1); SODIUM 138 mmol/L (136-145); UREA NITROGEN 13 mg/dL (7-18); eGFR NON AFRICAN AMERICAN > 90 mL/min (90-120)
[2020-07-06 08:00] VITALS: BP 115/56
[2020-07-06 12:00] VITALS: BP 106/71
[2020-07-06 16:00] VITALS: BP 112/70
[2020-07-06 21:00] VITALS: BP 130/63
[2020-07-07] VITALS (7 sets, daily range): BP systolic 104–135; BP diastolic 47–78
--- NOTE | 2020-07-07 03:00 | NUR ---
RESTING IN BED WITH NO DISTRESS. IVF NS @ 75ML/HR. SR PER TELEMETRY. CALL LIGHT IN REACH.
[2020-07-07 06:41] LABS: BASOPHILS 0.2 % (0-2); EOSINOPHILS 0 % (0-7); HEMATOCRIT 43.8 % (42.0-54.0); LYMPHOCYTES 10.1 % (15-50); MCH 34.2 pg (26.0-34.0); MCHC 34.1 g/dL (31.0-37.0); MCV 100.3 fL (80.0-100.0); MEAN PLATELET VOLUME 9.1 fL (7.4-10.4); MONOCYTES 2.2 % (2-11); NEUTROPHILS 87.5 % (40-80); PLATELET COUNT 257 10x3/uL (130-400); RBC 4.37 10x6/uL (4.20-6.10); RDW 12.4 % (11.5-14.5); WBC 14.5 10x3/uL (4.8-10.8)
[2020-07-07 07:06] LABS: ALBUMIN 3.2 g/dL (3.4-5.0); ALKALINE PHOSPHATASE 62 U/L (30-120); ALT (SGPT) 16 U/L (10-68); BILIRUBIN - TOTAL 0.39 mg/dL (0.2-1.3); CALCIUM 8.6 mg/dL (8.5-10.1); CARBON DIOXIDE 28.8 mmol/L (21.0-32.0); CHLORIDE - SERUM 107 mmol/L (98-107); CREATININE - SERUM 0.8 mg/dL (0.6-1.3); GLUCOSE 127 mg/dL (74-106); MAGNESIUM - SERUM 2.4 mg/dL (1.8-2.4); POTASSIUM - SERUM 4.2 mmol/L (3.5-5.1); PROTEIN - SERUM 6.2 g/dL (6.4-8.2); SODIUM 141 mmol/L (136-145); eGFR NON AFRICAN AMERICAN > 90 mL/min (90-120)
[2020-07-07 07:07] LABS: CALC OSMOLALITY 284 mosm/kg (275-300); UREA NITROGEN 17 mg/dL (7-18)
--- NOTE | 2020-07-07 13:15 | NUR ---
CHANCE FROM PHARMACY TO CALL AND STATES THAT DR OBRIEN ORDERED SOME ANCEF FOR PRE-OP. STATES PATIENT IS ALLERGIC TO PCN. SHE ASKED THAT I CALL HIM TO CHANGE THE MEDICATION. PAGE INTO RACHELLE SPENCER. AWAITING CALL BACK. 1317-SHE CALLED BACK AND IS GOING TO TEXT DR OBRIEN.
--- NOTE | 2020-07-07 13:19 | NUR ---
NEW ORDERS RECEIVED AND NOTED.
--- NOTE | 2020-07-07 14:25 | NUR ---
PATIENT REQUESTING PAIN MEDICATION, RATE PAIN 7/10 TO ABDOMINAL AREA. MS GIVEN PAST DILUATION WITH NS.
--- NOTE | 2020-07-07 17:46 | NUR ---
NO CONCERNS VOICED AT THIS TIME. PATIENT WILL BE NPO PAST MIDNIGHT TONIGHT.
--- NOTE | 2020-07-07 18:35 | NUR ---
RATES PAIN 9/10 TO ABDOMINAL AREA. MORPHINE IS GIVEN ORDERED.
--- NOTE | 2020-07-07 19:49 | NUR ---
RECIEVED UP IN BED WITH EYES OPEN. A/O X4. UP AD LIV. DENIES ANY NEEDS.
[2020-07-08 04:00] VITALS: BP 109/53
[2020-07-08 05:07] LABS: BASOPHILS 0.3 % (0-2); EOSINOPHILS 0 % (0-7); HEMATOCRIT 42.6 % (42.0-54.0); HEMOGLOBIN 14.2 g/dL (13.5-17.5); MCHC 33.3 g/dL (31.0-37.0); MCV 99.1 fL (80.0-100.0); MEAN PLATELET VOLUME 9.2 fL (7.4-10.4); MONOCYTES 8.2 % (2-11); NEUTROPHILS 77.5 % (40-80); PLATELET COUNT 246 10x3/uL (130-400); RDW 12.8 % (11.5-14.5)
[2020-07-08 05:33] LABS: ALBUMIN 2.8 g/dL (3.4-5.0); ALKALINE PHOSPHATASE 63 U/L (30-120); ALT (SGPT) 15 U/L (10-68); BILIRUBIN - TOTAL 0.34 mg/dL (0.2-1.3); CALC OSMOLALITY 277 mosm/kg (275-300); CALCIUM 8.2 mg/dL (8.5-10.1); CARBON DIOXIDE 26.8 mmol/L (21.0-32.0); CHLORIDE - SERUM 106 mmol/L (98-107); CREATININE - SERUM 0.9 mg/dL (0.6-1.3); GLUCOSE 106 mg/dL (74-106); MAGNESIUM - SERUM 2.3 mg/dL (1.8-2.4); POTASSIUM - SERUM 3.9 mmol/L (3.5-5.1); PROTEIN - SERUM 5.6 g/dL (6.4-8.2); SODIUM 138 mmol/L (136-145); UREA NITROGEN 17 mg/dL (7-18); eGFR NON AFRICAN AMERICAN 88 mL/min (90-120)
--- NOTE | 2020-07-08 06:50 | NUR ---
PATIENT AWAKE AND ALERT. NO CURRENT PAIN OR DISTRESS. RESP EVEN AND UNLABORED. IV TO LEFT AC PATENT FLUIDS RUNNING.
[2020-07-08 08:00] VITALS: BP 130/54
--- NOTE | 2020-07-08 08:06 | NUR ---
PATIENT PREPPED FOR SURGERY, CONSENTS SIGNED.
--- NOTE | 2020-07-08 09:10 | NUR ---
PATIENT OFF HEART MONITOR AND LEFT FLOOR FOR SURGERY. RESP EVEN AND UNLABORED. TRANSPORTED TO OR BY CIGAR PACKER AND PICKER.
--- NOTE | 2020-07-08 11:11 | NUR ---
CONSULTED WITH DR MISHRA REGARDING CARDIA RHYTHM, PRN ORDERS REC'D
--- NOTE | 2020-07-08 11:30 | NUR ---
RETURNED FROM SURGERY. TELE REPLACED. RESIDENT GROGGY BUT RESPONSIVE. FLUIDS STARTED. PATIENT HAS DISCOMFORT BUT DILIUD ON BOARD FROM RECOVERY. O2 AT 3L IN USE, RESP SHALLOW BUT FAVORABLE.
[2020-07-08 11:35] VITALS: BP 106/56
--- OUTSIDE RECORDS SUMMARY | 2020-07-08 12:31 | XMS Report ---
Demographics + + + | Address | [address] [place], [place] [address]k [facility] | | | [place], [place] | | | [address] | + + + | Home Phone | | + + + | Preferred Language | Unknown | + + + | Marital Status | | + + + | Mormon Affiliation | Unknown | + + + | Race | White | + + + | Ethnic Group | Not or | + + + Author + + + | Author | [facility], | | | [facility] | | | [place] | + + + | Organization | [facility], | | | [facility] | | | [place] | + + + | Address | [address] | | | [place] [address] | | | | + + + | Phone | [phone] | + + + Care Team Providers + +------+ + | Care Hair Rooting Machine Operator Name | Role | Phone | + +------+ + | AMIRA GRULLON | 3 | [phone] | + +------+ + | ANAHernan AMIRA | 4 | [phone] | + +------+ + Reason for Referral Reason for Visit Chest pain Assessment No assessment recorded. Patient Targets + + + + | Encounter Date | Instructions | Goals | | | | | | | | | + + + + | 07/08/2020 | | | | | | | | | | | + + + + Plan of Treatment + + + + + + + | Reminders | | Order | Submit | Provider | Details | | | | Date | Date | | | | | | | | | | | | | | | | | | | | | | | | | | | | | | | + + + + + + + | | | | | CAROLYN | | | | | | | MADAN, | | | | | 1 10:45AM | | ANP | | | | | | | | | | | | | | | | | Appointme | Office | | | | | | nts | Visit | | | | | | | | | | | | | | | | | | | | | | | | | | | | | | | | | | | | | | | | | | | | | | | | | | | | | | | | | | | | | + + + + + + + | | None | | | | | | | recorded. | | | | | | | | | | | | | | | | | | | | Lab | | | | | | | | | | | | | | | | | | | | | | | | | | | | | | | | | | | | | | | | | | | | | | | | | | | | | | | | | | | | | | + + + + + + + | | | | | | | | | | 05/25/202 | | [facility] | | | | | 1 | 05/25/202 | [facility] | | | | | | 1 | Medical | | | | | | | Center, | | | Referral | general | | | 130 | | | | surgeon | | | Medical | | | | referral | | | [address], Hot | | | | | | | [place], | | | | | | | [place], | | | | | | | [address], Ph | | | | | | | ([phone]) | | | | | | | [phone] | | | | | | | | | | | | | | | | | | | | | | | | | | | | | | + + + + + + + | | None | | | | | | | recorded. | | | | | | | | | | | | | | | | | | | | | | | | | | | Procedure | | | | | | | s | | | | | | | | | | | | | | | | | | | | | | | | | | | | | | | | | | | | | | | | | | | | | | | | | | | | | | | | | | | | | | + + + + + + + | | None | | | | | | | recorded. | | | | | | | | | | | | | | | | | | | | | | | | | | | Surgeries | | | | | | | | | | | | | | | | | | | | | | | | | | | | | | | | | | | | | | | | | | | | | | | | | | | | | | | | | | | | | | + + + + + + + | | None | | | | | | | recorded. | | | | | | | | | | | | | | | | | | | | | | | | | | | Imaging | | | | | | | | | | | | | | | | | | | | | | | | | | | | | | | | | | | | | | | | | | | | | | | | | | | | | | | | | | | | | | + + + + + + + Results +--------+--------+--------+--------+--------+--------+--------+--------+ | Date | Name | Descri | Value | Unit | Range | Abnorm | Provid | | | | ption | | | | al | er | | | | | | | | Flag | Detail | | | | | | | | | | | | | | | | | | | | | | | | | | | | | | | | | | | | | | | | | | | | | | | | | | | | | | | +--------+--------+--------+--------+--------+--------+--------+--------+ | | XR, | | | | | | | | | chest, | | | | | | | | | 2 | | | | | | | | | view | | | | | | | | | | | | | | | | | | | | | | | | | | | | | | | | | | | | | | No | | | | Nation | | | | | observ | | | | al | | | | | ation | | | | Park | | | | | record | | | | Medica | | | | | ed. | | | | l | | | | | | | | | Center | | | | | | | | | | | | | | | | | | (Imagi | | | | | | | | | ng) | | | | | | | | | | | | | | | | | | | | | | | | | | | | | | | | | | | | | | | | | | | | | | | | | | | | | | | | | | | | | | | | | | | | | | | | | | | | | | | | | | | | | | | | | | | | | | | | | | | | | | | | | | | | | | | | | | | | | | | | | | | | | | | | | | | | | | | 1912 | | | | | | | | | [place] | | | | | | | | | [address] | | | | | | | | | Hot | | | | | | | | | Spring | | | | | | | | | s | | | | | | | | | Nation | | | | | | | | | al | | | | | | | | | Park, | | | | | | | | | [place], | | | | | | | | | [phone], | | | | | | | | | Ph | | | | | | | | | (501) | | | | | | | | | [address] | | | | | | | | | 75 | | | | | | | | | | | | | | | | | | | | | | | | | | | | | | | | | | | | | | | | | | | | | | | | | | | | | | | | | | | | | | | | | | | | | | | | | | | | | | | | | | | | | | | | | | | | | | | | | | | | +--------+--------+--------+--------+--------+--------+--------+--------+ | | US, | | | | | | | | | liver | | | | | | | | | | | | | | | | | | | | | | | | | | | | | | | | | | | | | | | | | | | | | | | | | | | | | | | | No | | | | Nation | | | | | observ | | | | al | | | | | ation | | | | Park | | | | | record | | | | Medica | | | | | ed. | | | | l | | | | | | | | | Center | | | | | | | | | | | | | | | | | | (Imagi | | | | | | | | | ng) | | | | | | | | | | | | | | | | | | | | | | | | | | | | | | | | | | | | | | | | | | | | | | | | | | | | | | | | | | | | | | | | | | | | | | | | | | | | | | | | | | | | | | | | | | | | | | | | | | | | | | | | | | | | | | | | | | | | | | | | | | | | | | | | | | | | | | | 1910 | | | | | | | | | [place] | | | | | | | | | [address], | | | | | | | | | Hot | | | | | | | | | Spring | | | | | | | | | s | | | | | | | | | Nation | | | | | | | | | al | | | | | | | | | Park, | | | | | | | | | [place], | | | | | | | | | [id number], | | | | | | | | | Ph | | | | | | | | | (501) | | | | | | | | | [address] | | | | | | | | | 75 | | | | | | | | | | | | | | | | | | | | | | | | | | | | | | | | | | | | | | | | | | | | | | | | | | | | | | | | | | | | | | | | | | | | | | | | | | | | | | | | | | | | | | | | | | | | | | | | | | | | +--------+--------+--------+--------+--------+--------+--------+--------+ Problems +---------+---------+---------+---------+---------+---------+---------+ | Name | Status | Last | Onset | Resolut | Lateral | Problem | | | | Modifie | Date | ion | ity | Type | | | | d Date | | Date | | | | | | | | | | | | | | | | | | | | | | | | | | | | | | | | | | | | | | | | | | | +---------+---------+---------+---------+---------+---------+---------+ | Tobacco | Active | | | | | | | | | 021 | 021 | | | | | depende | | | | | | | | nce | | | | | | | | syndrom | | | | | | | | e | | | | | | | | | | | | | | | | | | | | | | | | | | | | | | | | | | | | | | | | | | | | | | | +---------+---------+---------+---------+---------+---------+---------+ | Obstruc | Active | | | | | | | tive | | 020 | 020 | | | | | sleep | | | | | | | | apnea | | | | | | | | syndrom | | | | | | | | e | | | | | | | | | | | | | | | | | | | | | | | | | | | | | | | | | | | | | | | | | | | | | | | +---------+---------+---------+---------+---------+---------+---------+ | Sleep | Active | | | | | | | related | | 021 | 021 | | | | | | | | | | | | | hypoxem | | | | | | | | ia | | | | | | | | | | | | | | | | | | | | | | | | | | | | | | | | | | | | | | | | | | | | | | | +---------+---------+---------+---------+---------+---------+---------+ | Restles | Active | | | | | | | s legs | | 021 | 021 | | | | | | | | | | | | | | | | | | | | | | | | | | | | | | | | | | | | | | | | | | | | +---------+---------+---------+---------+---------+---------+---------+ | Ventric | Active | | | | | | | ular | | 021 | 021 | | | | | prematu | | | | | | | | re | | | | | | | | complex | | | | | | | | | | | | | | | | | | | | | | | | | | | | | | | | | | | | | | | | | | | | | | | | | | | | | | | +---------+---------+---------+---------+---------+---------+---------+ | Chronic | Active | | | | | | | | | 020 | 020 | | | | | obstruc | | | | | | | | tive | | | | | | | | lung | | | | | | | | disease | | | | | | | | | | | | | | | | | | | | | | | | | | | | | | | | | | | | | | | | | | | | | | | | | | | | | | | +---------+---------+---------+---------+---------+---------+---------+ | Disorde | Active | | | | | | | r of | | 013 | | | | | | gallbla | | | | | | | | dder | | | | | | | | | | | | | | | | | | | | | | | | | | | | | | | | | | | | | | | | | | | | | | | +---------+---------+---------+---------+---------+---------+---------+ | Dyspnea | Active | | | | | | | on | | 021 | 021 | | | | | exertio | | | | | | | | n | | | | | | | | | | | | | | | | | | | | | | | | | | | | | | | | | | | | | | | | | | | | | | | +---------+---------+---------+---------+---------+---------+---------+ | Snoring | Active | | | | | | | | | 021 | 021 | | | | | symptom | | | | | | | | s | | | | | | | | | | | | | | | | | | | | | | | | | | | | | | | | | | | | | | | | | | | | | | | +---------+---------+---------+---------+---------+---------+---------+ | Esophag | Active | | | | | | | eal | | 021 | 021 | | | | | dysphag | | | | | | | | ia | | | | | | | | | | | | | | | | | | | | | | | | | | | | | | | | | | | | | | | | | | | | | | | +---------+---------+---------+---------+---------+---------+---------+ Procedures Surgical History + + + + + | Date | Name | Laterality | Status | | | | | | | | | | | | | | | | + + + + + | | | | active | | | | | | | | | | | | | Hernia Repair | | | | | | | | | | | | | | | | | | | | | | | | | | | | + + + + + | | | | active | | | | | | | | Other | | | | | | | | | | | | | | | | | | | | | | | | | | | | + + + + + | | | | active | | | | | | | | Other | | | | | | | | | | | | | | | | | | | | | | | | | | | | + + + + + Imaging Results None recorded. Medical Equipment None Reported. Allergies + + + + + + + | Name | Reaction | Severity | Status | Onset | Category | | | | | | | | | | | | | | | | | | | | | | | | | | | | | + + + + + + + | | | | | | | | | | | | | | | | | | | | | | | | | | | | | | | | | | | | codeine | itching | | active | | Medicatio | | | | | | | n Allergy | | | | | | | | | | | | | | | | | | | | | | | | | | | | | | | | | | | | | | | | | | | | | | | | | | | | | | | | | + + + + + + + | | | | | | | | | | | | | | | | | | | | | | | | | | | | | | | | | | | | Penicilli | | | active | | Medicatio | | ns | | | | | n Allergy | | | | | | | | | | | | | | | | | | | | | | | | | | | | | | | | | | | | | | | | | | | | | | | | | | | | | | | | | + + + + + + + Medications + + + + + + + | Name | Sig | Start | Stop Date | Status | Note | | | | Date | | | | | | | | | | | | | | | | | | | | | | | | | | | | | | | | + + + + + + + | | | | | active | | | | | | | | | | | | | | | | | | | | | | | | | | | | | | | | | | | | | | | | | | | | | donepezil | | | | | | | | | | | | | | hydrochlo | | | | | | | ride 5 | | | | | | | mg tabs | | | | | | | | | | | | | | | | | | | | | | | | | | | | | | | | | | | | | | | | | | | | | | | | | | | | | | | | | | | | | | | | | | | | | | | | | | | | + + + + + + + | | | | | active | | | | | | | | | | | | | | | | | | | | | | | | | | | | | | | | | | | | | | | | | | | | | ofloxacin | | | | | | | 0.3 % | | | | | | | soln | | | | | | | | | | | | | | | | | | | | | | | | | | | | | | | | | | | | | | | | | | | | | | | | | | | | | | | | | | | | | | | | | | | | | | | | | | | | + + + + + + + | | | | | active | | | | | | | | | | | | | | | | | | | | | | | | | | | | | | | | | | | | | | | | | | | | | cyclobenz | | | | | | | aprine | | | | | | | hydrochlo | | | | | | | ride 10 | | | | | | | mg tabs | | | | | | | | | | | | | | | | | | | | | | | | | | | | | | | | | | | | | | | | | | | | | | | | | | | | | | | | | | | | | | | | | | | | | | | | | | | | + + + + + + + | | | | | active | | | | | | | | | | | | | | | | | | | | | | | | | | | | | | | | | | | | | | | | | | | | | diazepam | | | | | | | 2 mg | | | | | | | tabs | | | | | | | | | | | | | | | | | | | | | | | | | | | | | | | | | | | | | | | | | | | | | | | | | | | | | | | | | | | | | | | | | | | | | | | | | | | | + + + + + + + | | | | | active | | | | | | | | | | | | | | | | | | | | | | | | | | | | | | | | | | | | | | | | | | | | | proair | | | | | | | hfa 108 | | | | | | | mcg/act | | | | | | | aers | | | | | | | | | | | | | | | | | | | | | | | | | | | | | | | | | | | | | | | | | | | | | | | | | | | | | | | | | | | | | | | | | | | | | | | | | | | | + + + + + + + | | | | | active | | | | | | | | | | | | | | | | | | | | | | | | | | | | | | | | | | | | | | | | | | | | | doxycycli | | | | | | | ne | | | | | | | hyclate | | | | | | | 100 mg | | | | | | | caps | | | | | | | | | | | | | | | | | | | | | | | | | | | | | | | | | | | | | | | | | | | | | | | | | | | | | | | | | | | | | | | | | | | | | | | | | | | | + + + + + + + | | | | | active | | | | | | | | | | | | | | | | | | | | | | | | | | | | | | | | | | | | | | | | | | | | | hydroco/a | | | | | | | pap tab | | | | | | | 10-325mg | | | | | | | | | | | | | | | | | | | | | | | | | | | | | | | | | | | | | | | | | | | | | | | | | | | | | | | | | | | | | | | | | | | | | | | | | | | | + + + + + + + | | | | | active | | | | | | | | | | | | | | | | | | | | | | | | | | | | | | | | | | | | | | | | | | | | | dexilant | | | | | | | 60 mg | | | | | | | cpdr | | | | | | | | | | | | | | | | | | | | | | | | | | | | | | | | | | | | | | | | | | | | | | | | | | | | | | | | | | | | | | | | | | | | | | | | | | | | + + + + + + + | | | | | active | | | | | | | | | | | | | | | | | | | | | | | | | | | | | | | | | | | | | | | | | | | | | prednisol | | | | | | | one | | | | | | | acetate | | | | | | | 1 % susp | | | | | | | | | | | | | | | | | | | | | | | | | | | | | | | | | | | | | | | | | | | | | | | | | | | | | | | | | | | | | | | | | | | | | | | | | | | | + + + + + + + | | | | | active | | | | | | | | | | | | | | | | | | | | | | | | | | | | | | | | | | | | | | | | | | | | | pregabali | | | | | | | n 100 mg | | | | | | | caps | | | | | | | | | | | | | | | | | | | | | | | | | | | | | | | | | | | | | | | | | | | | | | | | | | | | | | | | | | | | | | | | | | | | | | | | | | | | + + + + + + + | | | | | active | | | | | | | | | | | | | | | | | | | | | | | | | | | | | | | | | | | | | | | | | | | | | tamsulosi | | | | | | | n | | | | | | | hydrochlo | | | | | | | ride 0.4 | | | | | | | mg caps | | | | | | | | | | | | | | | | | | | | | | | | | | | | | | | | | | | | | | | | | | | | | | | | | | | | | | | | | | | | | | | | | | | | | | | | | | | | + + + + + + + | | | | | active | | | | | | | | | | | | | | | | | | | | | | | | | | | | | | | | | | | | | | | | | | | | | sertralin | | | | | | | e hcl 50 | | | | | | | mg tabs | | | | | | | | | | | | | | | | | | | | | | | | | | | | | | | | | | | | | | | | | | | | | | | | | | | | | | | | | | | | | | | | | | | | | | | | | | | | + + + + + + + | | | | | active | | | | | | | | | | | | | | | | | | | | | | | | | | | | | | | | | | | | | | | | | | | | | ropinirol | | | | | | | e hcl | | | | | | | 0.5 mg | | | | | | | tabs | | | | | | | | | | | | | | | | | | | | | | | | | | | | | | | | | | | | | | | | | | | | | | | | | | | | | | | | | | | | | | | | | | | | | | | | | | | | + + + + + + + | | | | | active | | | | | | | | | | | | | | | | | | | | | | | | | | | | | | | | | | | | | | | | | | | | | cyclobenz | | | | | | | aprine 10 | | | | | | | mg | | | | | | | tablet | | | | | | | | | | | | | | | | | | | | | | | | | | | | | | | | | | | | | | | | | | | | | | | | | | | | | | | | | | | | | | | | | | | | | | | | | | | | + + + + + + + | | | | | active | | | | | | | | | | | | | | | | | | | | | | | | | | | | | | | | | | | | | | | | | | | | | donepezil | | | | | | | 5 mg | | | | | | | tablet | | | | | | | | | | | | | | | | | | | | | | | | | | | | | | | | | | | | | | | | | | | | | | | | | | | | | | | | | | | | | | | | | | | | | | | | | | | | + + + + + + + | | | | | completed | | | | | | | | | | | | | 02/11/202 | | | | | | | 0 | | | | | | | | | | | | | | | | | | | | | | | | | clindamyc | | | | | | | in HCl | | | | | | | 300 mg | | | | | | | capsule | | | | | | | | | | | | | | | | | | | | | | | | | | | | | | | | | | | | | | | | | | | | | | | | | | | | | | | | | | | | | | | | | | | | | | | | | | | | + + + + + + + | | | | | active | | | | | | | | | | | | | | | | | | | | | | | | | | | | | | | | | | | | | | | | | | | | | ofloxacin | | | | | | | 0.3 % | | | | | | | eye drops | | | | | | | | | | | | | | | | | | | | | | | | | | | | | | | | | | | | | | | | | | | | | | | | | | | | | | | | | | | | | | | | | | | | | | | | | | | | + + + + + + + | | | | | completed | | | | | | | | | | | | | 05/16/201 | | | | | | | 9 | | | | | | | | | | | | | | | | | | | | | | | | | sucralfat | | | | | | | e 1 gram | | | | | | | tablet | | | | | | | | | | | | | | | | | | | | | | | | | | | | | | | | | | | | | | | | | | | | | | | | | | | | | | | | | | | | | | | | | | | | | | | | | | | | + + + + + + + | | | | | active | | | | | | | | | | | | | | | | | | | | | | | | | | | | | | | | | | | | | | | | | | | | | famotidin | | | | | | | e 40 mg | | | | | | | tablet | | | | | | | | | | | | | | | | | | | | | | | | | | | | | | | | | | | | | | | | | | | | | | | | | | | | | | | | | | | | | | | | | | | | | | | | | | | | + + + + + + + | | | | | completed | | | | | | | | | | | | | /16/201 | | | | | | | 9 | | | | | | | | | | | | | | | | | | | | | | | | | metronida | | | | | | | zole 500 | | | | | | | mg tablet | | | | | | | | | | | | | | | | | | | | | | | | | | | | | | | | | | | | | | | | | | | | | | | | | | | | | | | | | | | | | | | | | | | | | | | | | | | | + + + + + + + | | | | | active | | | | | | | | | | | | | | | | | | | | | | | | | | | | | | | | | | | | | | | | | | | | | valacyclo | | | | | | | vir 500 | | | | | | | mg tablet | | | | | | | | | | | | | | | | | | | | | | | | | | | | | | | | | | | | | | | | | | | | | | | | | | | | | | | | | | | | | | | | | | | | | | | | | | | | + + + + + + + | | | | | active | | | | | | | | | | | | | | | | | | | | | | | | | | | | | | | | | | | | | | | | | | | | | hydrocodo | | | | | | | ne 10 | | | | | | | mg-acetam | | | | | | | inophen | | | | | | | 325 mg | | | | | | | tablet | | | | | | | | | | | | | | | | | | | | | | | | | | | | | | | | | | | | | | | | | | | | | | | | | | | | | | | | | | | | | | | | | | | | | | | | | | | | + + + + + + + | | | | | completed | | | | | | | | | | | | | 05/16/201 | | | | | | | 9 | | | | | | | | | | | | | | | | | | | | | | | | | peg-elect | | | | | | | rolyte | | | | | | | solution | | | | | | | 420 gram | | | | | | | oral | | | | | | | solution | | | | | | | | | | | | | | | | | | | | | | | | | | | | | | | | | | | | | | | | | | | | | | | | | | | | | | | | | | | | | | | | | | | | | | | | | | | | + + + + + + + | | | | | completed | | | | | | | | | | | | | 02/11/202 | | | | | | | 0 | | | | | | | | | | | | | | | | | | | | | | | | | prednisol | | | | | | | one | | | | | | | acetate 1 | | | | | | | % eye | | | | | | | drops,angelic | | | | | | | pension | | | | | | | | | | | | | | | | | | | | | | | | | | | | | | | | | | | | | | | | | | | | | | | | | | | | | | | | | | | | | | | | | | | | | | | | | | | | + + + + + + + | | | | | active | | | | | | | | | | | | | | | | | | | | | | | | | Take | | | | | | | 2 | | | | | | | capsules | | | | | | tamsulosi | every day | | | | | | n 0.4 mg | by oral | | | | | | capsule | route. | | | | | | | | | | | | | | | | | | | | | | | | | | | | | | | | | | | | | | | | | | | | | | | | | | | | | | | | | | | | | | | | | | | | | | | | | | | + + + + + + + | | | | | active | | | | | | | | | | | | | | | | | | | | | | | | | | | | | | | | | | | | | | | | | | | | | diazepam | | | | | | | 2 mg | | | | | | | tablet | | | | | | | | | | | | | | | | | | | | | | | | | | | | | | | | | | | | | | | | | | | | | | | | | | | | | | | | | | | | | | | | | | | | | | | | | | | | + + + + + + + | | | | | active | | | | | | | | | | | | | | | | | | | | | | | | | Take | | | | | | | 1 tablet | | | | | | | every day | | | | | | ropinirol | by oral | | | | | | e 0.5 mg | route at | | | | | | tablet | bedtime | | | | | | | for 30 | | | | | | | days. | | | | | | | | | | | | | | | | | | | | | | | | | | | | | | | | | | | | | | | | | | | | | | | | | | | | | | | | | | | | | + + + + + + + | | | | | active | | | | | | | | | | | | | | | | | | | | | | | | | | | | | | | | | | | | | | | | | | | | | dexametha | | | | | | | sone 4 mg | | | | | | | tablet | | | | | | | | | | | | | | | | | | | | | | | | | | | | | | | | | | | | | | | | | | | | | | | | | | | | | | | | | | | | | | | | | | | | | | | | | | | | + + + + + + + | | | | | completed | | | | | | | | | | | | | 01/16/201 | | | | | | | 9 | | | | | | | | | | | | | | | | | | | | | | | | | promethaz | | | | | | | ine 25 mg | | | | | | | tablet | | | | | | | | | | | | | | | | | | | | | | | | | | | | | | | | | | | | | | | | | | | | | | | | | | | | | | | | | | | | | | | | | | | | | | | | | | | | + + + + + + + | | | | | completed | | | | | | | | | | | | | 01/16/201 | | | | | | | 9 | | | | | | | | | | | | | | | | | | | | | | | | | omeprazol | | | | | | | e 20 mg | | | | | | | capsule,d | | | | | | | elayed | | | | | | | release | | | | | | | | | | | | | | | | | | | | | | | | | | | | | | | | | | | | | | | | | | | | | | | | | | | | | | | | | | | | | | | | | | | | | | | | | | | | + + + + + + + | | | | | completed | | | | | | | | | | | | | 01/16/201 | | | | | | | 9 | | | | | | | | | | | | | | | | | | | | | | | | | diazepam | | | | | | | 10 mg | | | | | | | tablet | | | | | | | | | | | | | | | | | | | | | | | | | | | | | | | | | | | | | | | | | | | | | | | | | | | | | | | | | | | | | | | | | | | | | | | | | | | | + + + + + + + | | | | | completed | | | | | | | | | | | | | 05/16/201 | | | | | | | 9 | | | | | | | | | | | | | | | | | | | | | | | | | zolpidem | | | | | | | 10 mg | | | | | | | tablet | | | | | | | | | | | | | | | | | | | | | | | | | | | | | | | | | | | | | | | | | | | | | | | | | | | | | | | | | | | | | | | | | | | | | | | | | | | | + + + + + + + | | | | | active | | | | | | | | | | | | | | | | | | | | | | | | | | | | | | | | | | | | | | | | | | | | | sertralin | | | | | | | e 50 mg | | | | | | | tablet | | | | | | | | | | | | | | | | | | | | | | | | | | | | | | | | | | | | | | | | | | | | | | | | | | | | | | | | | | | | | | | | | | | | | | | | | | | | + + + + + + + | | | | | active | | | | | | | | | | | | | | | | | | | | | | | | | | | | | | | | | | | | | | | | | | | | | doxycycli | | | | | | | ne | | | | | | | hyclate | | | | | | | 100 mg | | | | | | | tablet | | | | | | | | | | | | | | | | | | | | | | | | | | | | | | | | | | | | | | | | | | | | | | | | | | | | | | | | | | | | | | | | | | | | | | | | | | | | + + + + + + + | | | | | completed | | | | | | | | | | | | | 11/11/201 | | | | | | | 9 | | | | | | | | | | | | | | | | | | | | | | | | | moxifloxa | | | | | | | adriana 0.5 % | | | | | | | eye | | | | | | | drops | | | | | | | | | | | | | | | | | | | | | | | | | | | | | | | | | | | | | | | | | | | | | | | | | | | | | | | | | | | | | | | | | | | | | | | | | | | | + + + + + + + | | | | | completed | | | | | | | | | | | | | 05/16/201 | | | | | | | 9 | | | | | | | | | | | | | | | | | | | | | | | | | nitrofura | | | | | | | ntoin | | | | | | | monohydra | | | | | | | te/macroc | | | | | | | rystals | | | | | | | 100 mg | | | | | | | capsule | | | | | | | | | | | | | | | | | | | | | | | | | | | | | | | | | | | | | | | | | | | | | | | | | | | | | | | | | | | | | | | | | | | | | | | | | | | | + + + + + + + | | | | | active | | | | | | | | | | | | | | | | | | | | | | | | | | | | | | | | | | | | | | | | | | | | | lactulose | | | | | | | 10 | | | | | | | gram/15 | | | | | | | mL oral | | | | | | | solution | | | | | | | | | | | | | | | | | | | | | | | | | | | | | | | | | | | | | | | | | | | | | | | | | | | | | | | | | | | | | | | | | | | | | | | | | | | | + + + + + + + | | | | | active | | | | | | | | | | | | | | | | | | | | | | | | | Take | | | | | | | 1 capsule | | | | | | | every 8 | | | | | | pregabali | hours by | | | | | | n 100 mg | oral | | | | | | capsule | route. | | | | | | | | | | | | | | | | | | | | | | | | | | | | | | | | | | | | | | | | | | | | | | | | | | | | | | | | | | | | | | | | | | | | | | | | | | | + + + + + + + | | | | | active | | | | | | | | | | | | 05/18/202 | | | | | | | 1 | | | | | | | | | | | | | Inhale 2 | | | | | | | puffs | | | | | | ProAir | every 4 | | | | | | HFA 90 | hours by | | | | | | mcg/actua | inhalatio | | | | | | tion | n route | | | | | | aerosol | as needed | | | | | | inhaler | for 30 | | | | | | | days. | | | | | | | | | | | | | | | | | | | | | | | | | | | | | | | | | | | | | | | | | | | | | | | | | | | | | | | | | | | | | | | | | | | | + + + + + + + | | | | | completed | | | | | | | | | | | | | 11/11/ | | | | | | 9 | 0 | | | | | | | | | | | | INHALE 2 | | | | | | | PUFF(S) | | | | | | Symbicort | TWICE A | | | | | | 160 | DAY BY | | | | | | mcg-4.5 | INHALATIO | | | | | | mcg/actua | N ROUTE. | | | | | | tion HFA | | | | | | | aerosol | | | | | | | inhaler | | | | | | | | | | | | | | | | | | | | | | | | | | | | | | | | | | | | | | | | | | | | | | | | | | | | | | | | | | | | | | | | | | | | | | | | | | | | + + + + + + + | | | | | active | | | | | | | | | | | | | | | | | | | | | | | | | Take | | | | | | | 1 capsule | | | | | | | every | | | | | | Dexilant | day by | | | | | | 60 mg | oral | | | | | | capsule, | route for | | | | | | delayed | 56 days. | | | | | | release | | | | | | | | | | | | | | | | | | | | | | | | | | | | | | | | | | | | | | | | | | | | | | | | | | | | | | | | | | | | | | | | | | | | | | | | | | | | + + + + + + + | | | | | completed | | | | | | | | | | | | | | | | | | | | 0 | | | | | | | | | | | | | | | | | | | | | | | | | Tudorza | | | | | | | Pressair | | | | | | | 400 | | | | | | | mcg/actua | | | | | | | tion | | | | | | | breath | | | | | | | activated | | | | | | | | | | | | | | | | | | | | | | | | | | | | | | | | | | | | | | | | | | | | | | | | | | | | | | | | | | | | | | | | | | | | | | | | | | | | + + + + + + + History of Present Illness None recorded. Physical Exam + + + | | | | | | | | | | | | + + + | | None recorded. | | Notes: | | | | | | | | + + + Review of Systems None recorded. Vitals None Recorded Social History + + + | | Current Every Day Smoker | | Smoking Status | (CurrentlyEveryDay) | | | | | | | + + + | Sex | Unknown | | | | + + + Functional Status None recorded. Mental Status None recorded. Family History + + + + + + + | Relations | Descripti | Onset Age | of | Resolved | Notes | | hip | on | | this Age | Age | | | | | | | | | | | | | | | | | | | | | | | | | | | | | | + + + + + + + | Father | [place] | | | | | | | m | | | | | | | | | | | | | | | | | | | | | | | | | | | | | | | | | + + + + + + + | Mother | Heart | | | | | | | disease | | | | | | | | | | | | | | | | | | | | | | | | | | | | | | | | | + + + + + + + Medical History + + + | Condition | Response | | | | + + + | Fibromyalgia | Y | | | | + + + | Osteoporosis | Y | | | | + + + | Arthritis | Y | | | | + + + | Stroke | Y | | | | + + + Immunizations None recorded. Past Encounters + + + + | Encounter Date | Diagnosis Name | Diagnosis SNOMED-CT | | | | Code | | | | | + + + + | | Chronic obstructive | [id number] | | | lung disease | | | 07/01/2020 | | | | | | | | | | | | | | | | | | | | | | | | [place], [place] - | | | | [facility] | | | | [place], [facility] | | | | [facility] | | | | [place]: [address], [place] | | | | [place], [place] | | | | [phone], Ph. [phone] | | | | [phone] | | | | | | | | | | | | | | | | | | | + + + + | | Restless legs | [id number] | | | | | | | | | + + + + | | Dyspnea on exertion | 71980809 | | | | | | | | | + + + + | | Obstructive sleep | 57145693 | | | apnea syndrome | | | | | | | | | | + + + + | | Esophageal dysphagia | 78481043 | | | | | | | | | + + + + | | Snoring symptoms | [id number] | | | | | | | | | + + + + | | Sleep related | [id number] | | | hypoxemia | | | | | | | | | | + + + + | | Ventricular premature | [id number] | | | complex | | | | | | | | | | + + + + | | Tobacco dependence | 96359345 | | | syndrome | | | | | | | | | | + + + + | | Recurrent ventral | 530617033 | | | incisional hernia | | | | | | | | | | + + + + | | Dementia | 33510468 | | | | | | | | | + + + + | | Gastroesophageal | 848557881 | | | reflux disease | | | | | | | | | | + + + + | | Recurrent ventral | 892812252 | | | incisional hernia | | | 06/27/2020 | | | | | | | | | | | | | | | | | | | | | | | | VAN[place]NA Fatima - | | | | [facility] | | | | [place] [facility] | | | | [facility] | | | | [place]: [address] | | | | [place], [place] | | | | [phone], Ph. [phone] | | | | [phone] | | | | | | | | | | | | | | | | | | | + + + + | | Chronic obstructive | 63151261 | | | lung disease | | | | | | | | | | + + + + | | Dementia | 22644981 | | | | | | | | | + + + + | | Gastroesophageal | 186160059 | | | reflux disease | | | | | | | | | | + + + + | | Nicotine dependence | [id number] | | | with current use | | | | | | | | | | + + + + Goals Section + + + + + + + | Goal | Descripti | Status | Start | Updated | Updated | | | on | | Date | by | on | | | | | | | | | | | | | | | | | | | | | | | | | | | | | + + + + + + + + + | None Recorded | + + Health Concerns Section + + | Related Observation | + + | None Recorded | + + + + + + + | Concern | Status | Updated by | Updated on | | | | | | | | | | | | | | | | + + + + + | None Recorded | | | | | | | | | | | | | | | | | | | + + + + +"
[2020-07-08 16:00] VITALS: BP 126/70
[2020-07-08 21:04] VITALS: BP 126/84
[2020-07-09 00:14] VITALS: BP 127/72
--- NOTE | 2020-07-09 02:00 | NUR ---
REPORT RECEIVED. CARE RESUMED BY THIS NURSE AT 2230. NO S/S OF DISTRESS OBSERVED. RR EVEN & UNLABORED ON 3L. PAIN 9/10 ATIVAN AND MORPHINE GIVEN PER EMAR. SR 70 ON TELE. IV TO L AC PATENT. PT COMPLAINING OF PAIN TO IV. RESITED TO L WRIST INFUSING BANANA BAG AT 75CC/HR. BED LOCKED AND LOWERED, CL IN REACH. ASSESSMENT COMPLETE. WILL CONT POC.
--- NOTE | 2020-07-09 03:09 | NUR ---
SCANT AMOUNT OF BRIGHT RED BLOOD NOTED ON ABDOMINAL DRESSING. APPLIED ABD BANDAGE OVER DRESSING.
[2020-07-09 04:18] VITALS: BP 120/58
[2020-07-09 06:27] LABS: BASOPHILS 0.3 % (0-2); EOSINOPHILS 0 % (0-7); HEMATOCRIT 41.5 % (42.0-54.0); HEMOGLOBIN 13.9 g/dL (13.5-17.5); MCH 33.2 pg (26.0-34.0); MCHC 33.5 g/dL (31.0-37.0); MCV 99.1 fL (80.0-100.0); MEAN PLATELET VOLUME 9.1 fL (7.4-10.4); MONOCYTES 9.5 % (2-11); NEUTROPHILS 77.2 % (40-80); PLATELET COUNT 235 10x3/uL (130-400); RBC 4.19 10x6/uL (4.20-6.10); RDW 12.4 % (11.5-14.5); WBC 12.9 10x3/uL (4.8-10.8)
[2020-07-09 06:35] LABS: ALBUMIN 2.8 g/dL (3.4-5.0); ALKALINE PHOSPHATASE 63 U/L (30-120); ALT (SGPT) 19 U/L (10-68); BILIRUBIN - TOTAL 0.43 mg/dL (0.2-1.3); CALC OSMOLALITY 276 mosm/kg (275-300); CALCIUM 7.9 mg/dL (8.5-10.1); CARBON DIOXIDE 31.1 mmol/L (21.0-32.0); CHLORIDE - SERUM 106 mmol/L (98-107); CREATININE - SERUM 0.8 mg/dL (0.6-1.3); GLUCOSE 102 mg/dL (74-106); MAGNESIUM - SERUM 2.3 mg/dL (1.8-2.4); POTASSIUM - SERUM 4.2 mmol/L (3.5-5.1); PROTEIN - SERUM 5.5 g/dL (6.4-8.2); SODIUM 138 mmol/L (136-145); UREA NITROGEN 14 mg/dL (7-18); eGFR NON AFRICAN AMERICAN > 90 mL/min (90-120)
--- NOTE | 2020-07-09 07:50 | NUR ---
Lying in bed, awake/alert/oriented, T/R self ad estevan, cont of B/B with BRPs per self ad estevan, denies pain/other discomfort at this time, call light/phone/water within reach, no s/s of acute distress observed.
[2020-07-09 09:00] VITALS: BP 120/78
[2020-07-09 15:00] VITALS: BP 134/89
[2020-07-09] MEDS ORDERED: NICODERM CQ1 EAC3 TRANSDERM (15:19)
[2020-07-09] MEDS ORDERED: IPRAT-ALBUT 0.5-3 ML UPD (15:19)
[2020-07-09] MEDS ORDERED: LIBRIUM5 MG PO (15:19)
[2020-07-09] MEDS ORDERED: PULMICORT0.5 MG/21 UPD (15:19)
--- NOTE | 2020-07-09 16:31 | MORECARE ---
CASE MANAGEMENT DISCHARGE SUMMARY PATIENT: LAYO MENEZES UNIT: [id number] ADM DATE: 07/05/20 AGE: 69 : 48 SEX: M ROOM/BED: D.2114 AUTHOR: SHANNAN,DOC PHYSICIAN: REFERRING PHYSICIAN: AMIRA GRULLON DO DATE OF SERVICE: 07/09/20 Case Management Discharge Planning Summary DCP REVIEW SUMMARY ANTICIPATED D/C DATE: 07/09/2020 EXPECTED LOS : 4 CASE STATUS: DCP Initiated INITIAL REVIEW: 07/04/2020 INITIAL REVIEWER: Kim Lema FINAL DISCHARGE DISPOSITION: 01 : Home or Self Care (Routine Discharge) FINAL REVIEWER: FINAL REVIEW DATE: DCP Focus Questions & Answers QUESTION: ANSWER : PATIENT: LAYO MENEZES ENCOUNTER: [id number] MEDICAL RECORD#: [id number] ADMISSION DATE: 07/05/2020 DISCHARGE DATE: ATTENDING MD: AMIRA CR : AGE: 69 MARITAL STATUS: D DC PLAN ID: [id number] FACILITY: [facility] PRINTED ON: 07/09/20 16:31 CT All edits/amendments must be made on the electronic document DICTATION DATE: 07/09/20 163 FLEXIBLE BABYSITTER: LILI 07/09/20 163 RPT#: [id number] DC DATE: STATUS: ADM IN [facility] [address] [place] [address] END OF REPORT
--- NOTE | 2020-07-09 16:45 | MORECARE ---
CASE MANAGEMENT DISCHARGE SUMMARY PATIENT: LAYO MENEZES UNIT: [id number] ADM DATE: 07/05/20 AGE: 69 : 48 SEX: M ROOM/BED: D.2114 AUTHOR: SHANNAN,ALCIDES PHYSICIAN: REFERRING PHYSICIAN: AMIRA GRULLON DO DATE OF SERVICE: 07/09/20 Case Management Discharge Planning Summary COMMENTS ENTERED DATE: 07/09/20 16:33 CT COMMENT TYPE: Discharge Planning REVIEWER: Kim Lema CM met with patient to complete discharge planning assessment and offer availability of needed services. Patient states that HE lives independently at home with his POA Blanca Morelos ) prior to admission. POA present in room at time of DCP and verified that home environment is safe and has electricity and running water. Patient denies need for transportation and states that they have funds for services and medications if needed. PCP is Dr. Grullon and patient uses [facility]. CM offered and discussed home health, rehab services, and need for any medical equipment. Patient did not express need for additional services at this time. Patient does have [facility] currently on hold per pt. POA states that she is comfortable contacting them herself when they are ready for them to resume. Pt states he has a walker, wheelchair, hospital bed, shower chair and other medical equipment. Transportation home will be provided by POA Patient verbalized understanding of signed forms. IMM served, and signed copy placed on chart. No further needs identified at this time. DCP REVIEW SUMMARY ANTICIPATED D/C DATE: 07/09/2020 EXPECTED LOS : 4 CASE STATUS: DCP Initiated INITIAL REVIEW: 07/04/2020 INITIAL REVIEWER: Kim Lema FINAL DISCHARGE DISPOSITION: 01 : Home or Self Care (Routine Discharge) FINAL REVIEWER: FINAL REVIEW DATE: [facility] Focus Questions & Answers QUESTION: ANSWER : PATIENT: LAYO MENEZES ENCOUNTER: [id number] MEDICAL RECORD#: [id number] ADMISSION DATE: 07/05/2020 DISCHARGE DATE: ATTENDING MD: AMIRA CR : AGE: 69 MARITAL STATUS: D DC PLAN ID: [id number] FACILITY: [facility] PRINTED ON: 07/09/20 16:45 CT All edits/amendments must be made on the electronic document DICTATION DATE: 07/09/201644 GEOTHERMAL HEAT PUMP MACHINIST: LILI 07/09/201644 RPT#: [id number] DC DATE: STATUS: ADM IN [facility] [address] [place] [address] END OF REPORT
--- NOTE | 2020-07-09 16:51 | NUR ---
Provided written/verbal DC instructions/education to which pt verbalized understanding, DC'd IV access/cardiac telemetry monitoring at this time.
--- NOTE | 2020-07-09 17:00 | NUR ---
DC'd home to self care in stable condition via w/c accompanied by hospital staff and family member, no s/s of acute distress observed.
--- NOTE | 2020-07-09 21:54 | MORECARE ---
CASE MANAGEMENT DISCHARGE SUMMARY PATIENT: LAYO MENEZES UNIT: [id number] ADM DATE: 07/05/20 AGE: 69 : 48 SEX: M ROOM/BED: D.2114 AUTHOR: SHANNAN,ALCIDES PHYSICIAN: REFERRING PHYSICIAN: AMIRA GRULLON DO DATE OF SERVICE: 07/09/20 Case Management Discharge Planning Summary COMMENTS ENTERED DATE: 07/09/20 16:33 CT COMMENT TYPE: Discharge Planning REVIEWER: Kim Lema CM met with patient to complete discharge planning assessment and offer availability of needed services. Patient states that HE lives independently at home with his POA Blanca Morelos ( [phone]) prior to admission. POA present in room at time of DCP and verified that home environment is safe and has electricity and running water. Patient denies need for transportation and states that they have funds for services and medications if needed. PCP is Dr. rGullon and patient uses [facility]. CM offered and discussed home health, rehab services, and need for any medical equipment. Patient did not express need for additional services at this time. Patient does have [facility] currently on hold per pt. POA states that she is comfortable contacting them herself when they are ready for them to resume. Pt states he has a walker, wheelchair, hospital bed, shower chair and other medical equipment. Transportation home will be provided by POA Patient verbalized understanding of signed forms. IMM served, and signed copy placed on chart. No further needs identified at this time. DCP REVIEW SUMMARY ANTICIPATED D/C DATE: 07/09/2020 EXPECTED LOS : 4 CASE STATUS: DCP Initiated INITIAL REVIEW: 07/04/2020 INITIAL REVIEWER: Kim Lema FINAL DISCHARGE DISPOSITION: 01 : Home or Self Care (Routine Discharge) FINAL REVIEWER: FINAL REVIEW DATE: [facility] Focus Questions & Answers QUESTION: ANSWER : PATIENT: LAYO MENEZES ENCOUNTER: [id number] MEDICAL RECORD#: [id number] ADMISSION DATE: 07/05/2020 DISCHARGE DATE: 07/09/2020 ATTENDING MD: AMIRA CR : AGE: 69 MARITAL STATUS: D DC PLAN ID: [id number] FACILITY: [facility] PRINTED ON: 07/09/20 21:54 CT All edits/amendments must be made on the electronic document DICTATION DATE: 07/09/202153 MACHINE SILK SCREEN PRINTER: LILI 07/09/202153 RPT#: [id number] DC DATE:07/09/20 STATUS: DIS IN [facility] [address] [place] [address] END OF REPORT
--- NOTE | 2020-07-11 11:56 | OP ---
PATIENT NAME: LAYO MENEZES MEDICAL RECORD: [id number] :46 LOCATION:D.M2 D.2114 ADMISSION DATE:07/05/20 SURGEON: VERITO OBRIEN MD DATE OF OPERATION: 07/08/2020 PREOPERATIVE DIAGNOSES: 1. Recurrent ventral hernia. 2. Chronic obstructive pulmonary disease. 3. Alcoholic liver disease. POSTOPERATIVE DIAGNOSES: 1. Recurrent ventral hernia. 2. Chronic obstructive pulmonary disease. 3. Alcoholic liver disease. PROCEDURE: Ventral hernia repair with 4.[address] mesh. SURGEON: Verito Obrien MD REPORT OF PROCEDURE: The patient's abdomen was prepped and draped in sterile fashion. A semicircular incision was made on the inferior aspect of the umbilicus. Electrocautery was used to dissect through the subcutaneous tissue. We opened up the hernia sac and elevated the patient's umbilicus. There was some fat present within the hernia sac, but no evidence of any bowel. We freed up the hernia sac down to the fascial edges and this measured out at about 2 cm. I then cleared off the anterior aspect of the abdominal wall around the hernia defect using electrocautery. I then cleared off a few spaces on the anterior fascia and inserted a 4.[address] mesh in an underlay fashion. This was sutured down on all sides using interrupted 0 Prolenes times 4. We then closed the fascia transversely using a running 0 Vicryl. The umbilicus was tacked down to the fascia with a single interrupted 3-0 Vicryl. The subcutaneous tissues were then reapproximated with interrupted 3-0 Vicryl and the skin was closed with running subcutaneous 5-0 Monocryl. The tissues were infused with a total of 10 mL of 0.25% Marcaine plain and a dressing was applied. COMPLICATIONS: None. CONDITION: Stable. ANESTHESIA: General endotracheal and local. BLOOD LOSS: Minimal. TRANSINT:[id number] Voice Confirmation ID: [id number] DOCUMENT ID: [id number] VERITO OBRIEN MD at 1156 CC: [id number] DICTATION DATE: 07/08/20 1023 RACING MANAGER: 07/09/20 0511 DIS IN 07/09/20 [id number] [place] [address]
== END 2020-07-09 17:00 | disposition home or self-care (01) | DRG 354 ==
LOC: D.ER 13:25 → OBSVTIME 16:49 → D.M2 16:49
PROVIDERS: Emergency Medicine; Family Medicine Adult Medicine; Surgery; ADMIT Family Medicine; ATTEND Family Medicine
PROC: 0WUF0JZ Supplement Abdominal Wall with Synthetic Substitute, Open Approach (ICD-10-PCS; principal; 2020-07-08 09:15)
DX: K43.0 Incisional hernia with obstruction, without gangrene (principal); J96.11 Chronic respiratory failure with hypoxia; I20.0 Unstable angina; J43.9 Emphysema, unspecified; K21.9 Gastro-esophageal reflux disease without esophagitis; K70.9 Alcoholic liver disease, unspecified; E86.0 Dehydration; N40.0 Benign prostatic hyperplasia without lower urinary tract symptoms; F41.8 Other specified anxiety disorders; G47.33 Obstructive sleep apnea (adult) (pediatric); G89.29 Other chronic pain; M54.9 Dorsalgia, unspecified; K57.90 Diverticulosis of intestine, part unspecified, without perforation or abscess without bleeding; F17.200 Nicotine dependence, unspecified, uncomplicated; F10.10 Alcohol abuse, uncomplicated

== ENCOUNTER 2020-08-09 20:41 | Observation (INO) | payer MEDICARE ==
[~2020-08-09] VITALS: Ht 175.3 cm; Wt 82.3 kg
[~2020-08-09 20:41] MED LIST changes: +ALBUTEROL SULF8.5 GM; +BETAMET; +CLOTRIMAZOLE; +DEXILANT60 MG PO; +DONEPEZIL HCL5 MG PO; +FLOMAX0.4 MG PO; +IPRAT-ALBUT 0.5-3 ML UPD; +LIBRIUM5 MG PO; +MELATONIN 3 MG1 TAB PO; +MUPIROCIN22 GM TOPICAL; +NICODERM CQ1 EAC3 TRANSDERM; +PEPCID40 MG PO; +PULMICORT0.5 MG/21 UPD; +ROPINIROLE HCL0.5 MG PO; +VALIUM 2 MG TAB2 MG PO; +ZOLOFT50 MG PO
[2020-08-09 20:43] VITALS: Ht 175.3 cm; Wt 82.3 kg
[2020-08-09 21:00] VITALS: BP 101/68
[2020-08-09 21:32] LABS: BASOPHILS 0.9 % (0-2); EOSINOPHILS 1.6 % (0-7); HEMATOCRIT 38.8 % (42.0-54.0); LYMPHOCYTES 30.3 % (15-50); MCH 32.2 pg (26.0-34.0); MCHC 33.5 g/dL (31.0-37.0); MEAN PLATELET VOLUME 7.2 fL (7.4-10.4); MONOCYTES 10.6 % (2-11); NEUTROPHILS 56.6 % (40-80); RBC 4.04 10x6/uL (4.20-6.10); RDW 12.5 % (11.5-14.5)
[2020-08-09 21:38] LABS: APTT 27.2 SECONDS (22.8-39.4); INR 1.12 (0.85-1.17); PROTIME 13.4 SECONDS (11.6-15.0)
[2020-08-09 21:39] LABS: CALC OSMOLALITY 265 mosm/kg (275-300); CALCIUM 8.2 mg/dL (8.5-10.1); CARBON DIOXIDE 24.2 mmol/L (21.0-32.0); CHLORIDE - SERUM 99 mmol/L (98-107); CREATININE - SERUM 1.1 mg/dL (0.6-1.3); GLUCOSE 97 mg/dL (74-106); PLATELET COUNT 350 10x3/uL (130-400); POTASSIUM - SERUM 3.9 mmol/L (3.5-5.1); SODIUM 133 mmol/L (136-145); UREA NITROGEN 12 mg/dL (7-18); eGFR NON AFRICAN AMERICAN 70 mL/min (90-120)
[2020-08-09 21:54] LABS: ALBUMIN 3.3 g/dL (3.4-5.0); ALKALINE PHOSPHATASE 78 U/L (30-120); ALT (SGPT) 20 U/L (10-68); BILIRUBIN - TOTAL 0.37 mg/dL (0.2-1.3); CREATINE KINASE 39 UL (21-232); LIPASE 60 U/L (73-393); MAGNESIUM - SERUM 1.9 mg/dL (1.8-2.4); PRO BNP 213 pg/mL (0-125); PROTEIN - SERUM 6.3 g/dL (6.4-8.2); THYROID STIMULATING HORMONE 0.35 uIU/mL (0.36-3.74); TROPONIN-I < 0.017 ng/mL (0.000-0.060)
[2020-08-09 22:00] VITALS: BP 99/71
--- NOTE | 2020-08-09 22:59 | NUR ---
IN AND OUT CATH. 400CC. UA SENT TO LAB. TOLERATED WELL.
[2020-08-09 23:00] VITALS: BP 116/73
[2020-08-09 23:14] LABS: BACTERIA FEW HPF (<MOD); BILIRUBIN NEGATIVE (NEGATIVE); KETONE NEGATIVE mg/dL (< 1+); NITRITE NEGATIVE (NEGATIVE); PH 5.5 (5.0-8.0); SQUAMOUS EPITHELIAL <1 HPF (0-4); UROBILINOGEN NORMAL mg/dL (< 2); WHITE CELLS - URINE 14 HPF (0-1)
[2020-08-09 23:16] LABS: UDS - AMPHET NEGATIVE QUAL (NEGATIVE); UDS - BARB NEGATIVE QUAL (NEGATIVE); UDS - BENZO POSITIVE QUAL (NEGATIVE); UDS - COCAINE NEGATIVE QUAL (NEGATIVE); UDS - OPIATE POSITIVE QUAL (NEGATIVE); UDS - PCP NEGATIVE QUAL (NEGATIVE); UDS - THC POSITIVE QUAL (NEGATIVE)
[2020-08-10] VITALS (10 sets, daily range): BP systolic 106–131; BP diastolic 70–88
[2020-08-10 05:52] LABS: BASOPHILS 0.9 % (0-2); EOSINOPHILS 1.5 % (0-7); HEMATOCRIT 39.6 % (42.0-54.0); HEMOGLOBIN 13.3 g/dL (13.5-17.5); LYMPHOCYTES 35.6 % (15-50); MCH 32.2 pg (26.0-34.0); MCHC 33.6 g/dL (31.0-37.0); MCV 95.8 fL (80.0-100.0); MEAN PLATELET VOLUME 7.2 fL (7.4-10.4); MONOCYTES 11.7 % (2-11); NEUTROPHILS 50.3 % (40-80); PLATELET COUNT 321 10x3/uL (130-400); RBC 4.13 10x6/uL (4.20-6.10); RDW 12.2 % (11.5-14.5)
[2020-08-10 06:25] LABS: ALKALINE PHOSPHATASE 73 U/L (30-120); ALT (SGPT) 17 U/L (10-68); BILIRUBIN - TOTAL 0.71 mg/dL (0.2-1.3); CALC OSMOLALITY 271 mosm/kg (275-300); CALCIUM 8.1 mg/dL (8.5-10.1); CARBON DIOXIDE 27.8 mmol/L (21.0-32.0); CHLORIDE - SERUM 102 mmol/L (98-107); CKMB 0.5 U/L (0.0-3.6); CREATINE KINASE 48 UL (21-232); GLUCOSE 93 mg/dL (74-106); MAGNESIUM - SERUM 2.1 mg/dL (1.8-2.4); PHOSPHOROUS 3.9 mg/dL (2.5-4.9); POTASSIUM - SERUM 4.2 mmol/L (3.5-5.1); PROTEIN - SERUM 6.2 g/dL (6.4-8.2); SODIUM 136 mmol/L (136-145); UREA NITROGEN 12 mg/dL (7-18)
[2020-08-10 06:26] LABS: ALCOHOL - BLOOD (MEDICAL) < 3.0 mg/dL (0.0-10.0); CREATININE - SERUM 0.8 mg/dL (0.6-1.3); TROPONIN-I < 0.017 ng/mL (0.000-0.060); eGFR NON AFRICAN AMERICAN > 90 mL/min (90-120)
--- NOTE | 2020-08-10 07:00 | NUR ---
0700: RECEIVED REPORT FROM RICH DELACRUZ. PT A&OX3, GCS 15, RR EVEN & UNLABORED. NO S/S OF ACUTE DISTRESS NOTED AT THIS TIME, WILL CONTINUE TO MONITOR. 0715: PT FAMILY BEDSIDE AT THIS TIME, ASKING ABOUT WHAT SCANS WERE DONE LAST NIGHT. FAMILY UPDATED. PT REQUESTING SOMETHING TO DRINK, FLUIDS PROVIDED. WILL CONTINUE TO MONITOR. 0800: PT GIVEN BREAKFAST TRAY. NO S/S OF ACUTE DISTRESS NOTED, WILL CONTINUE TO MONITOR. 0854: PT RESTING IN ROOM AT THIS TIME, NO S/S OF ACUTE DISTRESS NOTED, PT REMAINS SET TO MONITOR, STATES NO CONCERNS AT THIS TIME, WILL CONTINUE TO MONITOR.
[2020-08-10] MEDS ORDERED: FEXOFENADINE HC60 MG PO (10:58)
[2020-08-10] MEDS ORDERED: SINGULAIR10 MG PO (11:01)
[2020-08-10] MEDS ORDERED: TESSALON PERLE100 MG PO (11:01)
[2020-08-10] MEDS ORDERED: EFFEXOR50 MG PO (11:01)
[2020-08-10] MEDS ORDERED: MUCINEX600 MG PO (11:01)
[2020-08-10] MEDS ORDERED: AZITHROMYCIN500 MG PO (11:02)
[2020-08-10] MEDS ORDERED: OMNICEF300 MG PO (11:02)
== END 2020-08-10 21:00 | disposition home or self-care (01) ==
LOC: D.ER 20:41 → OBSVTIME 22:41 → D.EDHOLD 22:41
PROVIDERS: Family Medicine; ADMIT Family Medicine; ATTEND Family Medicine
DX: R55 Syncope and collapse (principal); J44.9 Chronic obstructive pulmonary disease, unspecified; K21.9 Gastro-esophageal reflux disease without esophagitis; N40.0 Benign prostatic hyperplasia without lower urinary tract symptoms; G47.00 Insomnia, unspecified; D64.9 Anemia, unspecified; G47.33 Obstructive sleep apnea (adult) (pediatric); F41.8 Other specified anxiety disorders; F10.129 Alcohol abuse with intoxication, unspecified; Y90.2 Blood alcohol level of 40-59 mg/100 ml; F19.10 Other psychoactive substance abuse, uncomplicated; J18.9 Pneumonia, unspecified organism; G93.41 Metabolic encephalopathy